=== PATIENT | male | born 1960 | race Caucasian/White ===

== ENCOUNTER 2016-10-04 10:29 | Day surgery (SDC) | payer OTHER ==
[~2016-10-04] VITALS: Ht 167.6 cm; Wt 56.7 kg
[2016-10-04] VITALS (7 sets, daily range): BP systolic 117–140; BP diastolic 72–79; PULSE 50–82; RESP 16; O2SAT 100
[~2016-10-04 10:29] MED LIST: 0.9% Sodium Chloride 1,000 ML IV SCH; OMEP20TA86 PO; Sodium Chloride LOK Flush 10 mL Syringe IV PRN; fentaNYL-PF 50 mCg/mL 2 mL Inj IVPUSH PRN
--- NOTE | 2016-10-04 14:28 | ENDO ---
[address] [address] ENDOSCOPY PROCEDURE PATIENT: NISA WINN : 1960 MR#: [id number] ADMIT: 10/04/2016 JOB ID: [id number] DATE OF SERVICE: 10/04/2016 PROCEDURE: Esophagogastroduodenoscopy with biopsy. Colonoscopy with hot snare polypectomy. PREPROCEDURE DIAGNOSIS(ES): Dysphagia. POSTPROCEDURE DIAGNOSIS(ES): 1. Distal esophageal stricture starting at 35 cm from the incisors. It is friable, hard, very concerning for malignancy, status post biopsy. Unable transverse this stricture through a regular upper endoscope or pediatric spaghetti scope. 2. An 8 mm transverse colon polyp, removed by hot snare polypectomy. 3. Small internal hemorrhoids. 4. Mild sigmoid diverticulosis. ANESTHESIA: Fentanyl 100 mcg, Versed 6 mg IV administered. COMPLICATIONS: None. BLOOD LOSS: Minimal. DESCRIPTION OF PROCEDURE: After risks and benefits explained to the patient, informed consent was obtained. After anesthesia administered, upper endoscope was inserted in the mouth and it could not transverse the stricture. After procedure was done, the scope withdrawn and procedure terminated. A colonoscope was inserted per rectum to cecum. Mucosa carefully examined. The prep of the patient was fair. The scope was withdrawn and procedure terminated. Upon inspection of the esophagus, there was a friable hard stricture, seen at the distal esophagus starting at 35 cm from incisors. Unable to pass through a regular upper endoscope or spaghetti pediatric scope. Several biopsies were taken in this region. The procedure was then aborted. Upon inspection of the anus, no masses, hemorrhoids, ulcers, fissures that were seen. Throughout the entire examination, there was an 8 mm transverse colon polyp removed by hot snare polypectomy. There was also mild sigmoid diverticulosis. Retroflexion revealed small internal hemorrhoids. No other polyps or masses were seen. IMPRESSION: 1. Esophageal stricture that is hard and friable, very concerning for malignancy at distal esophagus starting from 35 cm at least to the gastroesophageal junction. Unable to transverse through, status post biopsy. 2. An 8 mm transverse colon polyp removed by hot snare polypectomy. 3. Mild sigmoid diverticulosis. 4. Small internal hemorrhoids. RECOMMENDATION: Await pathology results. Will refer to [place] to see GI and Oncology. CT of chest, abdomen and pelvis with contrast.
--- NOTE | 2016-10-07 16:38 | PATH ---
SURGICAL PATHOLOGY Attending Physician:Chintan Lino MD CASE STATUS: Signed Out PATIENT NAME: NISA WINN PID: [id number] : 1960 DATE COLLECTED:10/04/2016 22:29 SPECIMEN: 1: Esophagus, Biopsy 2: Colon, Polyp CLINICAL HISTORY: 1). ESOPHAGEAL STRICTURE @ 35CM 2). TRANSVERSE POLYP X1 FINAL DIAGNOSIS: 1. Esophageal Stricture at 35 cm, Biopsy: - Poorly differentiated adenocarcinoma. Please see comment. - HER2 study pending; results will be reported as an addendum. 2. Transverse Colon, Polyp, Biopsy: Portions of tubular adenoma x3; negative for high-grade dysplasia. ICD10: C15.9 NOTE: Part 1: The immunohistochemistry studies support the diagnosis of adenocarcinoma and mitigate against a squamous origin. The findings are non-specific, but compatible with an upper gastrointestinal / pancreatobiliary origin. Please correlate these findings with imaging studies. This case was reviewed by my gastrointestinal pathologist colleague, Dr. Marlyn Truong, who concurs with the above interpretation. GROSS DESCRIPTION: The specimen is received in two formalin filled containers labeled with the patient's name. 1). The specimen is labeled "stricture esophagus at 35 CM" and consists of 2 portions of tissue which aggregate to 0.2 x 0.2 x 0.2 CM. The specimen is entirely submitted in cassette 1A. 2). The specimen is labeled "transverse colon polyp" and consists of 3 portions of tissue which aggregate to 0.3 x 0.3 x 0.3 CM to 0.5 x 0.5 x 0.5 CM. All fragments are entirely submitted in cassette 2A. 10/04/2016DC MICRO DESCRIPTION: 1.Immunohistochemical stains was performed, and the results are as follows. Control stains showed appropriate reactivity. Immunohistochemistry stainResult CDX-2Weak, variable staining AV6Afwo, variable staining [id number] E38Ubtlifk of strong staining CK5/6Absence of strong staining Her2 Pending, results will be reported in an addendum. This test was developed and its performance characteristics determined by [facility]. It has not been cleared or approved by the U. S. Food and Drug Administration. The FDA has determined that such clearance or approval is not necessary. This test is used for clinical purposes. It should not be regarded as investigational or for research. ICD-9 CODES: CPT CODES: 1: 69673, 97667, 37761, 06745, 08261, 92996 2: 17865 Electronically Signed Out Asuncion Eduardo MD [facility] [address], [place] [address] Technical component performed at [facility], [facility] [address], [place], [address]
== END 2016-10-04 23:59 | disposition home or self-care (01) ==
LOC: END 10:29
PROVIDERS: ATTEND Internal Medicine Gastroenterology
DX: Z12.11 Encounter for screening for malignant neoplasm of colon (principal); D12.3 Benign neoplasm of transverse colon; K57.30 Diverticulosis of large intestine without perforation or abscess without bleeding; K64.8 Other hemorrhoids; C15.5 Malignant neoplasm of lower third of esophagus; K22.2 Esophageal obstruction; K21.9 Gastro-esophageal reflux disease without esophagitis
CPT/HCPCS: 43239; 45385; 99153; G0500; J2250; J3010; J7030

== ENCOUNTER 2016-11-09 12:08 | Observation (INO) | payer OTHER ==
[~2016-11-09] VITALS: Ht 165.1 cm; Wt 45.8 kg
[2016-11-09] VITALS (11 sets, daily range): BP systolic 117–152; BP diastolic 70–91; PULSE 60–70; RESP 13–18; O2SAT 96–100
[~2016-11-09 12:08] MED LIST changes: -0.9% Sodium Chloride 1,000 ML IV SCH; +CeFAZolin Inj 2 GM in IV Premix 1 EACH IV ONE; -Sodium Chloride LOK Flush 10 mL Syringe IV PRN; +[UNRECOGNIZED DRUG - CODE] PO; -fentaNYL-PF 50 mCg/mL 2 mL Inj IVPUSH PRN
[2016-11-09] MEDS ORDERED: CeFAZolin 2 Gm/50 mL D5W Duplex Bag IV ONE (12:11)
[2016-11-09] MEDS: Lactated Ringer's 1,000 ML IV SCH ×3 (12:47→18:11)
[2016-11-09] MEDS ORDERED: Lactated Ringer's 500 ML IV PRN (14:16)
[2016-11-09] MEDS ORDERED: Lactated Ringer's 1,000 ML IV SCH (14:16)
--- NOTE | 2016-11-09 14:16 | PCM.HPANE ---
Patient Data Surgeon Admitting Provider: Attending Provider:Tainsha Martinez MD Primary Care Physician:Ephraim He MD Other Provider:Shannan Emery Anesthesia Reason for Visit Esophageal Cancer Ht/WT & BMI Height (Feet): 5 Height (Inches): 6 Weight (Kilograms): 45. Body Mass Index 15.00 Allergies Coded Allergies: No Known Drug Allergies (Verified Allergy, Unknown, 11/08/16) Past Anesthesia History Anesthesia History: Denies:: Abnormal Airway, Anesthesia Reactions, Difficult Intubation, Fam Anesthesia Reaction, Fam Malignant Hypertherm, Malignant Hyperthermia Diabetes History Hx Diabetes?: No MRSA MRSA: No Medications Reported Medications Lactose-Free Food (Ensure High Protein)237 Ml Mioely494 Ml PO DAILY 11/08/16 Discontinued Reported Medications Omeprazole 20 Mg Tablet.dr20 Mg PO DAILY 09/30/16 History History of ENT Problems?: Yes HEENT History: Positive for:: Dysphagia (Esophageal strictures) Denies:: Abnormal Airway Difficult Intubation Hearing Problem Sinus Problem TMJ Denture Type: None Teeth Condition: Within Normal Limits Missing Teeth Hx of Heart Problems?: No Cardiovascular History: Denies:: AICD Abdominal Aortic Aneurism Atrial Fibrillation Cardiac Surgery Chest Pain Congestive Heart Failure Coronary Artery Disease Edema Heart Murmur Hypertension Irregular Heartbeat Pacemaker Peripheral Vascular Rheumatic Fever Thrombophlebitis Valvular Heart Disease Hx of Respiratory Problem?: No Respiratory History: Denies:: Asthma COPD Chest Surgery Cough Dyspnea Emphysema Hemoptysis Oxygen Administration Pneumonia Pulmonary Embolism Tuberculosis Use of C-PAP Machine Use of Inhalers / NEBS Hx Neurologic Problems?: No Neurological History: Denies:: Alzheimer's Disease CVA Dementia Dizziness Headaches Parkinson's Disease Seizures TIA Hx of GI Problems?: Yes Gastrointestinal History: Positive for:: Gastroesphageal Reflux Denies:: Cirrhosis Diverticulitis Gall Bladder Disease Gastrointestinal Bleeding Heartburn Hepatitis Hiatal Hernia Liver Disease Rectal Bleeding Other GI Pertinent History: Esophageal CA Hx of Problems?: No HX of Peritoneal Dialysis: No Male Hx: Denies:: Prostate Problems Scrotal Mass Testicular Surgery Skin History: Denies:: History Skin Disorders? Pressure Ulcers Hx Musculoskeletal Problems?: No Musculoskeletal History: Denies:: Back Injury Degenerative Joint Joint Replacement Musculoskeletal Trauma Osteoarthritis Rheumatoid Arthritis Hx of Psycho/Social Problems?: No Psycho Social History: Denies:: Anxiety Hx Depression Hx Surgeries?: Yes (LEFT EYE) Hx Any Other Health Problems?: No Other History: Positive for:: Cancer (Esophageal with mets) Denies:: Hospitalization Thyroid Disease History Blood Transfusions: Positive for:: Accept Blood Products? Denies:: Blood Transfusions Hx Diabetes: No Hx Alcohol Use: NoHx Substance Use: Yes (occassionally) Smoking Status: Never Smoker Stop/Bang S-Snoring: Do You Snore Loudly: No T-Tired: feel tired, fatigued: No O-Obsered: Observed not breath: No P-Blood Pressure: treated: No B- Body Mass Index > 35 kg/m2: No A- Age over 50: Yes N- Neck Large Circumference: No G- Gender Male: No LAURA Total Score: 1 Risk Assessment Category Category 1A: Patient has history of documented sleep apnea, and HAS NOT received any narcotic, sedative or anesthesia administration during this stay. Category 1B: Patient has history of documented sleep apnea, and HAS received any narcotic , sedative or anesthesia administration during this stay Category 2: Patient has SUSPECTED Obstructive Sleep Apnea, and HAS received any narcotic , sedative or anesthesia administration during this stay. Category 3: Patient has SUSPECTED Obstructive Sleep Apnea and HAS NOT received narcotic, sedative or anesthesia administration during this stay. Category 4: Outpatient in Procedural Areas with known sleep apnea or who screen positive for High Risk via the STOP/BANG questionnaire. Exam Exam General Appearance: Alert, Oriented X3, Cooperative, No Acute Distress HEENT/AIRWAY: MP 2 Lungs: Clear to Auscultation Heart: Exam Unremarkable Plan Impression Patient chart reviewed, patient interviewed and anesthestic plan with risks, benefits, and alternatives discussed, and informed consent obtained. ASA Physical Status: ASA3 Severe Disease Anesthetic Plan: GA Bene/Risks/Altern/Consents: Yes HP Complete Prior to Induction: Yes Tom Gautam MD Nov 09, 2016 10:51
[2016-11-09] MEDS ORDERED: Dexamethasone 4 mg/mL Inj IVPUSH PRN (14:20)
[2016-11-09] MEDS ORDERED: fentaNYL-PF 50 mCg/mL 2 mL Inj IVPUSH PRN (14:20)
[2016-11-09] MEDS ORDERED: HYDROmorphone 1 mg/mL Inj IVPUSH PRN ×2 (14:20→16:25)
[2016-11-09] MEDS ORDERED: Phenylephrine 10,000 mCg/mL Inj IVPUSH PRN (14:20)
[2016-11-09] MEDS ORDERED: EPHEDrine Sulfate 50 mg/mL Inj IVPUSH PRN (14:20)
[2016-11-09] MEDS ORDERED: MetoCLOpramide 5 mg/mL 2 mL Inj IVPUSH PRN ×2 (14:20→16:25)
[2016-11-09] MEDS ORDERED: Ondansetron 2 mg/mL 2 mL Inj IVPUSH PRN ×2 (14:20→16:25)
[2016-11-09] MEDS ORDERED: Bupivacaine-MPF 0.5% 30 mL Inj INJ ONE (14:35)
[2016-11-09] MEDS ORDERED: HepLOK Flush 100 unit/mL 5 mL Inj IVFLUSH ONE (14:44)
[2016-11-09] MEDS ORDERED: D5 0.45% NaCl + KCl 20 mEq/L 1,000 ML IV SCH (16:25)
[2016-11-09] MEDS ORDERED: oxyCODONE 1 mg/mL 5 mL Liquid PO PRN (16:25)
--- NOTE | 2016-11-09 16:28 | PCM.ANEP1 ---
Post Anesthesia PACU Phase 1 Assessment Vital Signs Vital Signs Date Time Temp Pulse Resp B/P Pulse Ox O2 Delivery O2 Flow Rate FiO2 11/09/16 12:33 36.6 65 16 123/73 100 Room Air Anesthetic Administered: GA Level of Alertness: Awake, talking CAMP's with Equal Strength: Yes Pain: No Nausea or Vomiting: No CV Function & Hydration Stable: Yes Airway Device: Oxygen Delivery: Room Air Lungs: Clear to Auscultation Dermatome Level: Full Sensation PACU Phase 2 Assessment Complications: No Patient Instructions Provided: N/A Tom Gautam MD Nov 09, 2016 16:28
--- NOTE | 2016-11-09 16:44 | PCM.SURGPO ---
Immediate Operative Note Date of Surgery: Nov 09, 2016 Pre Operative Diagnosis Dysphagia and Esophageal Adenocarcinoma Post Operative Diagnosis Dysphagia and Esophageal Adenocarcinoma Procedure 1. Left subclavian port placement 2. Laparoscopic gastrostomy tube placement Surgeon and Specialist Icu Surgeon: Tanisha Martinez MD Assistants: Ramirez Burton MD and Miguelina Atwood DO Findings 1. Left subclavian port placement 2. Normal appearing stomach, laparoscopic gastrostomy tube placed with fluoroscopic confirmation. Complications There were no periprocedural complications identified. Surgical Specimen Removed: Not applicable Specimen sent to Pathology: Not applicable Anesthetic Administered: GA Grafts, Implants: Implants-See Implant Record Output, Estimated Blood Loss: 25 Blood Admin during surgery: Ramirez Michaels MD Nov 09, 2016 16:44
--- NOTE | 2016-11-09 17:14 | OP ---
[address] [address] OPERATIVE REPORT PATIENT: NISA WINN : 1960 MR#: [id number] ADMIT: 11/09/2016 JOB ID: [id number] DATE OF SURGERY: 11/09/2016 PREOPERATIVE DIAGNOSIS(ES): Metastatic esophageal adenocarcinoma. POSTOPERATIVE DIAGNOSIS(ES): Metastatic esophageal adenocarcinoma. PROCEDURE PERFORMED: 1. Tunneled left subclavian central venous catheter with subcutaneous port placement with intraoperative fluoroscopy. 2. Laparoscopic gastrostomy tube placement with intraoperative fluoroscopy. SURGEON: Tanisha Martinez MD PATCH SETTER: Ramirez Burton MD and Miguelina Atwood DO COMPLICATIONS: None. CONDITION OF THE PATIENT: Stable. INDICATIONS: The patient is a 56-year-old gentleman who presented to our regulatory agency director, Dr. Lino, with solid food dysphagia for two months on September 14, 2016. Dr. Lino performed EGD on October 04, 2016 and was diagnosed with a malignant distal esophageal stricture at 35 cm that he was unable to traverse. Pathology results were consistent with poorly differentiated adenocarcinoma. He was seen by Dr. Alvarado for palliative radiation. The patient lost about 40 pounds weight during this time. He was sent to me for consultation for gastrostomy tube placement. Given he needs chemotherapy, and also that endoscopy could not reach the stomach, I recommended laparoscopic gastrostomy along with tunnelled central venous catheter with port placement. After discussing the risks, benefits, and alternatives, he is here today to have that done. PROCEDURE DETAILS: He was placed in a supine position and underwent smooth induction of general anesthesia. Chest, neck, and abdomen were prepped and draped in the usual sterile fashion. A surgical time-out was undertaken using safety checklist and all were in agreement. We placed the patient in steep Trendelenburg position and entered the left subclavian vein using Seldinger technique and measured the required length of catheter using fluoroscopy and made a pocket over the left pectoralis for the port. After that we placed two PDS sutures to anchor the port to the fascia over the pectoralis and then attached the catheter to it and cut it to the required length. After that we advanced the introducer dilator over the wire, and removed the wire and the dilator, and advanced the catheter over the introducer sheath. After that we removed the tear-away sheath and placed the port within the pocket, and aspirated and flushed it, and confirmed that it is working well. Final fluoroscopy showed the catheter and the port to be in good position, with no kinks, and the catheter was locked with 100 units/mL of heparin. The skin was reapproximated with 4-0 Monocryl and then we directed our attention to the abdomen. I entered the abdomen using a combination of open Oc technique and using Optiview trocar, using a 5 mm port in the infraumbilical location. After obtaining pneumoperitoneum, we chose a site in the left upper quadrant for the gastrostomy and made an incision big enough for a 5 mm port. After placing the 5 mm port through, we grabbed the suitable location in the greater curvature of the stomach anteriorly on the antrum and desufflated the abdomen and brought the stomach to the skin level to be able to work. I placed stay sutures through the stomach and then we used the 3-0 Vicryl as four Abhi sutures anchoring the stomach to the rectus fascia. After that, we placed a pursestring in the middle and made a gastrotomy and attempted to advance the tube. This was not very straightforward and it was unclear if we were able to get into the gastric lumen or submucosal, prompting us to go back to a needle and placed a guidewire through the needle and used fluoroscopy to confirm intragastric placement. After injecting contrast and making sure that we were in the gastric lumen, we advanced the wire and then used serial dilators to dilate up to a 16-Mozambican dilator, and then advanced an 18-Mozambican G-tube over the wire. We again checked after injecting the G-tube to make sure that we were within the gastric lumen and insufflated the balloon with water and pulled back on the tube and then again checked intragastric position by injecting contrast through the G-tube. At this point we made sure we had no extravasation of liquid when injecting the G-tube into the peritoneal cavity by watching laparoscopically. We then removed the umbilical port trocar and closed the fascia with 0-Vicryl suture. The skin was reapproximated with 4-0 Monocryl. Steri-Strips and a sterile dressing were applied. Patient was recovered from anesthesia and was taken to the recovery room in stable condition. LILLI
--- NOTE | 2016-11-09 17:21 | DRSVH ---
PROCEDURE: X-RAY CHEST ONE VIEW, PORTABLE ([id number]) INDICATIONS: status post Left Subclavian Port placment TECHNIQUE: One view of the chest was acquired. COMPARISON: CT from 10/18/2016. FINDINGS: Surgical changes and devices: Portacatheter tip in the right atrium. Lungs and pleura: No pleural effusions or pneumothorax. Lungs are clear. The patient's known pulmo nary nodules are below the resolution of this study. Mediastinum: Mediastinal contours appear normal. Heart size is normal. Bones and chest wall: No suspicious bony lesions. Overlying soft tissues appear unremarkable. Free peritoneal gas. Oral contrast. IMPRESSION: Sided portacatheter tip in the right atrium. Free intra-abdominal gas consistent with recent gastrost michelle tube placement. Findings discussed via telephone with Dr. Martinez at 5:20 PM on 11/09/2016. Dictated by: Jose Reeves M.D. on 11/09/2016 at 17:16 Approved by: Jose Reeves M.D. on 11/09/2016 at 17:20
--- NOTE | 2016-11-09 18:00 | NUR ---
Post op Pt arrived on gurney and able to slide self over to bed. Denies any pain. Power port site on left chest is CDI. G-tube site is CDI. VSS, A&O x 3, CAMP, SCD's in place and connected. 99% on RA. Pt's daughter wanted to talk outside room and states that pt is a meth user and used this AM. Sharps container taken out of room, side placed at door for visitors to check in and belongings locked up. Will page to notify. Pt oriented to room and call light within reach. Addendum: 11/09/16 at 1927 by ANGEL CELIS RN called back and notified of drug use. He also recommended to have dietary come first thing in the morning to evaluate pt and start feedings, so pt can discharge tomorrow.
[2016-11-09] MEDS ORDERED: Dexamethasone 4 mg/mL Inj ONE (18:16)
[2016-11-09] MEDS ORDERED: Ondansetron 2 mg/mL 2 mL Inj ONE (18:16)
[2016-11-09] MEDS ORDERED: fentaNYL-PF 50 mCg/mL 2 mL Inj ONE (18:16)
[2016-11-09] MEDS ORDERED: Propofol 10,000 mCg/mL 20 mL Inj ONE (18:16)
[2016-11-09] MEDS: Acetaminophen 32.5 mg/mL 20 mL Liquid PO SCH ×2 (18:16→22:25)
[2016-11-09] MEDS ORDERED: Succinylcholine Chloride 20 mg/mL 5 mL Inj ONE (18:16)
[2016-11-09] MEDS ORDERED: MetoCLOpramide 5 mg/mL 2 mL Inj ONE (18:16)
[2016-11-09] MEDS ORDERED: Rocuronium 10 mg/mL 5 mL Inj ONE (18:16)
[2016-11-09] MEDS: Heparin 5,000 Unit/mL Inj SUBQ SCH (18:17)
[2016-11-10 00:11] VITALS: BP 127/69; PULSE 68; RESP 16; O2SAT 97
[2016-11-10] MEDS: Heparin 5,000 Unit/mL Inj SUBQ SCH ×2 (00:43→07:46)
--- NOTE | 2016-11-10 01:51 | NUR ---
Cancer Care Appointment Patient A&OX3 and pleasant this evening. Denies any pain, CP, or SOB. States that he has received a telephone call from the cancer [facility] that he has a radiation appointment scheduled for in the morning, 11/10/16. Patient is concerned about whether or not MD at the hospital is aware of this, or if he should attend. Will share this with day shift nurse in hopes that this information be passed on. Will continue to monitor and continue Q1 hour checks.
[2016-11-10 04:42] VITALS: BP 107/63; PULSE 68; RESP 16; O2SAT 99
[2016-11-10] MEDS: Acetaminophen 32.5 mg/mL 20 mL Liquid PO SCH (04:50)
--- NOTE | 2016-11-10 07:03 | PCM.DISURG ---
Surgical Discharge Instruction Date of Service Nov 10, 2016 Dates of Hospitalization Date of Hospital Admission Nov 09, 2016 at 18:15 Providers Admitting Physician: Tanisha Martinez MD Primary Care Physician: Ephraim He MD Attending Physician: Tanisha Martinez MD Discharge Diagnosis Post Operative diagnosis Dysphagia and Esophageal Adenocarcinoma Diet Discharge Diet: Other (Tube feeding per home nutrition care instructions. Clear liquid diet by mouth.) Activity Discharge Activity-General: No lifting >15 pounds for 2 weeks Dressing and Incisional Care Dressing Care: Keep dressing clean, dry & intact (around G tube. Keep G tube coming straight out and taped to skin to prevent too much motion.), Allow Steri Stripes to fall off (from port site.) Hygiene: May shower after (48 hours.), DO NOT soak incision under water, NO bathtub, hot tub or whirlpool Follow Up Plan Follow Up Plan as needed if questions or concerns about wound healing or G tube issues. Follow-up Provider (F9): Tanisha Martinez MD Follow-up appointment: As needed Call your provider for: Increasing abdominal pain, Nausea, Vomiting, Discharge @ incision, pus discharge Ramirez Burton MD Nov 10, 2016 07:03
[2016-11-10] MEDS ORDERED: ACET650S24 PO (07:05)
--- NOTE | 2016-11-10 07:13 | PCM.PNSURG ---
Subjective Date of Service: Nov 10, 2016 Date of Service: Nov 10, 2016 Visit Information: Reason for Visit Esophageal Cancer Surgery/Surgery Date GASTROSTOMY TUBE/ PORT A CATH 11/09/16 Post-Op Day # Date of Admission: Nov 09, 2016 at 18:15 Hospital Day # Subjective: Sergio reports minimal pain at operative sites. He slept well and felt comfortable with tylenol for pain control. Denies nausea, vomiting. Looking forward to going home today. Objective Vital Sign- Last 8 Hours Date Time Temp Pulse Resp B/P Pulse Ox O2 Delivery O2 Flow Rate FiO2 11/10/16 04:42 36.6 68 16 107/63 99 Room Air 11/10/16 00:11 36.7 68 16 127/69 97 Room Air Intake and Output- Last 8 Hour 11/10/16 Cumulative From/Thru 07:00 11/08/16 10:13 - 11/10/16 05:03 Intake Total 930 ml 2780 ml Output Total 300 ml 325 ml Balance 630 ml 2455 ml Intake Oral 400 ml 400 ml IV Total 530 ml 2380 ml Output Urine Total 300 ml 300 ml Estimated Blood Loss 25 ml # Bowel Movements 0 0 General: Alert, Oriented X3, Cooperative, No Acute Distress Neck: Other (Left subclavian port site dressing c/d/i. Minimal tenderness to palpation. ) Lungs: Clear to Auscultation, Normal Air Movement Heart: Regular Rate/Rhythm Abdomen: Benign, Non-tender, Other (G tube site is bolstered and tube taped to skin. No leaking appreciated. Surgical site is c/d/i without erythema. Scaphoid abdomen.) Assessment & Plan Impression 56 yo M with esophageal adenocarcinoma and dysphagia s/p left subclavian port placement and laparoscopic gastrostomy tube placement. Recovering well and ready to initiate tube feeding this morning. Problems: Plan FEN/GI: Start jevity 1.5 at 30cc/hr. Water flushes 40cc q4hrs. Clear liquid diet as tolerated. PAIN: Liquid tylenol prn for pain control. Rx in chart for discharge. CANCER: Radiation therapy at 10am. SW: Home tube feeding arranged, patient will call on discharge so they can meet him at home to review home care, tube feeding set up and instructions. DISPO: Okay for discharge home after radiation treatment if tolerating tube feeding rate without abdominal pain, nausea, vomiting or G tube leaking. Ramirez Burton MD Nov 10, 2016 07:09
[2016-11-10] MEDS ORDERED: OXYC5SOL11 PO (07:14)
--- NOTE | 2016-11-10 07:28 | NUR ---
NUTRITION ASSESSMENT: ASSESS: 56 YO patient recently diagnosed with poorly differentiated adenocarcinoma of the lower esophagus. EGD performed 10/04/16 showed a distal esophageal stricture starting at 35 cm from the incisors, friable, hard. Stricture was unable to be traversed, despite utilizing a pediatric scope. The patient reports he has had increased difficulty swallowing solid food, progressing to the point where any solid was regurgitated, worse as the day progresses. Despite no loss of appetite, he reports he has lost 40 pounds = 18.18 kg = 28.78% x 3 months = severe malnutrition. He was given a prescription for Reglan, along with nutritional supplements; however, he is unable to keep anything down. He has been referred for early initiation of palliative radiation to the esophagus such that the patient may be able to tolerate PO nutrition; radiation oncologist will then consider chemotherapy. PEG tube was placed yesterday for nutrition intervention; fortunately home healthcare was authorized by insurance after the fact. The patient was admitted followoing the procedure; orders received this morning to initiate enteral feeding prior to discharge. POC: [facility] will meet the patient following his radiation appointment this morning to provide PEG tube education and feeding instructions. 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 LABS: No labs ordered. NUTRITION FOCUSED PHYSICAL ASSESSMENT: GI symptoms / stool: No problems reported with lower GI tract. Skin Integrity: No issues reported. ANTHROPOMETRICS: Current Wt: 45.8 kg BMI: 16.0 kg/m2. IBW: 63.8 kg (71% IBW) ESTIMATED NEEDS (CANCER [place]HEXIA): Calories: 1575 - 1800 kcal (35 - 40 kca/ kg BW) Protein 68 - 90 g protein (1.5 - 2.0 g / kg BW) Fluid: Approx. 1575 mL (35 mL/ kg BW) NUTRITION DIAGNOSIS: 1) Severe malnutrition related to rapidly progressing esophageal cancer with mets, as evidenced by 28.78% BW loss x 3 months. INTERVENTION 1) Enteral feeding recommendation follows; orders submitted for initiation of therapy. Jevity 1.5 will initiate at 30 mL/hr x 8 hr. Once refeeding risk resolved, recommend advance 5 ml every 4 hr. to goal rate 48 mL/hr. Once the patient has been discharged, and refeeding risk resolved (approx. 3 days), recommend nocturnal feeding x 12 hr. Once pt. clearly tolerating enteral feeding, recommend slowly increasing nocturnal feeding to 95 mL/hr x 12 hours nocturnally. 2) In the event pt. unable to qualify for pump, recommend bolus feedings throughout the day calculated to meet patient's nutrient needs. 3) Our outpatient RD's will follow [facility] to provide support and encouragement as his treatment progresses. MONITOR/EVALUATE: NPO status, enteral feeding initiation / advance / tolerance, POC, labs, weight, nutritional status. Follow up per high nutrition risk guidelines.
--- NOTE | 2016-11-10 10:28 | NUR ---
PEG PEG feeding started at 30ml with flush 40ml q4 with IV fluids infusing started at 0750. Within 30 minutes pt was complaining of pain and requesting feedings turned town. Turned to 10ml/hr and IV pain medications given. Pt tolerating well until flushed 16ml water prior to discharge, which caused increasing pain.
--- NOTE | 2016-11-10 10:29 | NUR ---
Discharge Pt discharged at 0947 in w/c with [employer] taking over to radiation. Pt having increasing PEG pain after flush. IV medications given 1 hour prior. Pt educated on PEG tube infusions and care. Pt understands to call home infusion services once home and has the phone number. ZOË FUCHS, A&O x 3. Pt has discharge instructions, care notes and rx. Rx also faxed to [facility]. Pt has all belongings and all questions answered.
--- NOTE | 2016-11-10 12:34 | PCM.DC.SUR ---
Discharge Summary Date of Service: Nov 10, 2016 Date of Hospital Admission: Nov 09, 2016 at 18:15 Date of Operation(s): Nov 09, 2016 Date of Discharge: Nov 10, 2016 Diagnosis at Time of Discharge Metastatic esophageal adenocarcinoma Problems: (1) Dysphagia Qualifiers: Dysphagia type: esophageal phase Qualified Code: R13.14 - Dysphagia, pharyngoesophageal phase Status: Acute ICD Code: R13.10 Operation 1. Tunneled left subclavian central venous catheter with subcutaneous port placement with intraoperative fluoroscopy. 2. Laparoscopic gastrostomy tube placement with intraoperative fluoroscopy Brief History and Physical: The patient is a 56-year-old gentleman who presented to our neck skewer, Dr. Lino, with solid food dysphagia for two months on September 14, 2016. 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 Pathology results were consistent with poorly differentiated adenocarcinoma. He was seen by Dr. Alvarado for palliative radiation. The patient lost about 40 pounds weight during this time. He was sent by general surgery for consultation for gastrostomy tube placement. Given he needs chemotherapy, and also that endoscopy could not reach the stomach, laparoscopic gastrostomy along with tunnelled central venous catheter with port placement was recommended. After discussing the risks, benefits, and alternatives he presented to the hospital for the above mentioned procedures to be performed. Vital Sign- Last 8 Hours Date Time Temp Pulse Resp B/P Pulse Ox O2 Delivery O2 Flow Rate FiO2 11/10/16 04:42 36.6 68 16 107/63 99 Room Air 11/10/16 00:11 36.7 68 16 127/69 97 Room Air Intake and Output- Last 8 Hour 11/10/16 Cumulative From/Thru 07:00 11/08/16 10:13 - 11/10/16 05:03 Intake Total 930 ml 2780 ml Output Total 300 ml 325 ml Balance 630 ml 2455 ml Intake Oral 400 ml 400 ml IV Total 530 ml 2380 ml Output Urine Total 300 ml 300 ml Estimated Blood Loss 25 ml # Bowel Movements 0 0 General: Alert, Oriented X3, Cooperative, No Acute Distress Neck: Other (Left subclavian port site dressing c/d/i. Minimal tenderness to palpation. ) Lungs: Clear to Auscultation, Normal Air Movement Heart: Regular Rate/Rhythm Abdomen: Benign, Non-tender, Other (G tube site is bolstered and tube taped to skin. No leaking appreciated. Surgical site is c/d/i without erythema. Scaphoid abdomen.) Consultants: none Hospital Course: The patient was admitted and taken to the operating room for a laparoscopic placement of a gastrostomy tube and placement of a subcutaneous port. Please see the operative report for details of the procedure. The patient tolerated the procedure and was transferred to his hospital room where he remained for the balance of his hospital stay. On postoperative day number 1, he was found to have good pain control and access to the port and feeding tube was performed without abdominal pain, nausea, vomiting or G tube leaking. He was then discharged to his home in good condition with plans to begin radiation therapy and tube feedings today. Pathology: None Disposition: good condition Follow-up Plan: Tube feeding per home nutrition care instructions. Clear liquid diet by mouth. Follow up as needed if questions or concerns about wound healing or G tube issues. Acetaminophen (Acetaminophen Liquid) 650 Mg/20 Ml Liquid 650 MG PO Q6H PRN PRN For Pain Lactose-Free Food (Ensure High Protein) 237 Ml Liquid 237 ML PO DAILY (Reported ) copies to: Ephraim He MD, Samuel L PA-C Nov 10, 2016 12:33
== END 2016-11-10 09:54 | disposition home or self-care (01) ==
LOC: SAS 12:08 → OSC 18:15
PROVIDERS: ADMIT Student in an Organized Health Care Education/Training Program; ATTEND Student in an Organized Health Care Education/Training Program
DX: C15.9 Malignant neoplasm of esophagus, unspecified (principal); R13.10 Dysphagia, unspecified; R63.4 Abnormal weight loss; F12.90 Cannabis use, unspecified, uncomplicated
CPT/HCPCS: 36561; 43653; 71010; 76000; 76001; 96374; C1788; G0378; G0379; J0330; J0690; J1100; J1170; J1642; J1644; J1885; J2405; J2704; J2765; J3010; J7120

== ENCOUNTER 2016-11-10 16:09 | Inpatient (IN) | payer OTHER ==
[~2016-11-10] VITALS: Ht 167.6 cm; Wt 52.0 kg
[~2016-11-10 16:09] MED LIST changes: +ACET650S24 PO; -CeFAZolin Inj 2 GM in IV Premix 1 EACH IV ONE; -OMEP20TA86 PO; +OXYC5SOL11 PO
[2016-11-10 16:15] VITALS: BP 168/89; PULSE 74; RESP 18; O2SAT 100
--- NOTE | 2016-11-10 16:24 | ED.REPORT ---
HPI-General Illness Date of Service Nov 10, 2016 ED Provider: Roshan Starkey MD Patient is a 56 year old male with a history of esophageal cancer with mets to the liver and lungs who presents to the ED complaining of left upper quadrant abdominal pain onset today. Associated symptoms include nausea and pain that radiates throughout the rest of his abdomen. The patient reports that he has not had any bowel movements but has been able to pass gas. The patient describes the pain as sharp and burning and rates it as an 8/10. Patient had a gastrostomy tube paced yesterday and was discharged in stable condition today. The patient states that the pain started after receiving food through the tube and he has not noticed anything that improves his pain. He denies rectal bleeding, chest pain, vision changes, headache, shortness of breath, fever or chills, or any other related complaints at this time. Nursing Notes Stated Complaint: POST OP PAIN- SOB, NAUSEA, ABD. PAIN Chief Complaint: Male Abdominal Pain Nursing Notes Reviewed: Yes Allergies: Coded Allergies: No Known Drug Allergies (Verified Allergy, Unknown, 11/10/16) Scheduled Lactose-Free Food (Ensure High Protein) 237 Ml Liquid 237 ML PO DAILY Scheduled PRN Acetaminophen (Acetaminophen Liquid) 650 Mg/20 Ml Liquid 650 MG PO Q6H PRN PRN For Pain General Time Seen by MD: 16:24 Chief Complaint Abdominal pain Hx Obtained From: Patient Arrived By: Walk-in Sudden in Onset?: Yes Onset Occurred: 1 - 4 hours ago Symptom Duration: Since onset Location: : Abdomen Quality: Aching, Burning, Painful Severity: Current: Pain level 8 out of 10 Recent Healthcare: Recent doctor visit, Recent hospitalization Past Medical History Past Medical History metastatic esophageal cancer Past Surgical History gastrostomy tube placement Smoking History Never Smoker Ambulatory Status Independent Review of Systems Full Review of Systems Constitutional: Denies: Chills, Fever Eyes: Denies: Blurred bilateral, Diplopia Ears / Nose / Throat: Reports: Throat pain Respiratory: Denies: Non-productive cough, Shortness of breath Cardiovascular: Denies: Chest pain GI: Reports: Abdominal pain, Nausea, Denies: Bloody/tarry stool, Hematochezia, Vomiting Male: Denies Dysuria Musculoskeletal: Denies: Back pain Hematologic: Denies Bruising Endocrine: Denies: Polyuria Skin: Denies Rash Allergy / Immune: Denies: Itching Neurologic: Denies: Headache, Vision change Psychiatric: Denies: Change mental status Complete sys rev & neg: except as marked. Physical Exam Nursing note and vitals reviewed. Constitutional: Thin, somewhat ill-appearing male lying flat in bed. Not diaphoretic. Head: Normocephalic and atraumatic. Mouth/Throat: Oropharynx is clear and moist. No oropharyngeal exudate. Eyes:Left eye opacified, stable from previous per patient. Right pupil is reactive to light and accommodation. Neck: Supple, no tracheal deviation. Cardiovascular: Normal rate, regular rhythm. Equal and intact distal pulses throughout. Pulmonary/Chest: Effort normal and breath sounds normal. No respiratory distress. Abdominal: Soft. No distension. Diffuse tenderness to palpation throughout with some voluntary guarding. Feeding tube appears to be in place, clean and dry without surrounding erythema. Musculoskeletal: Range of motion grossly intact, moving all extremities. No edema or tenderness appreciated. Neurological: AOx3. Grossly nonfocal exam. Strength and sensation intact and equal to bilateral upper and lower extremities. Skin: Warm and dry, no rashes or pallor appreciated. Psychiatric: Appropriate mood and affect. Behavior appears normal. Vital Signs Vital Signs Date Time Temp Pulse Resp B/P Pulse Ox O2 Delivery O2 Flow Rate FiO2 11/10/16 20:04 84 15 145/74 100 Room Air 11/10/16 16:15 36.6 74 18 168/89 100 Room Air Initial VS: Reviewed Interpretation & Diagnostics Lab Results Interpretation Result Diagram: 11/10/16 1650 11/10/16 1650 Test 11/10/16 16:50 11/10/16 17:11 White Blood Count 4.8th/mm3 (3.8-10.1) Red Blood Count 4.65mil/mm3 (4.40-5.80) Hemoglobin 13.2g/dL (13.8-17.2) Hematocrit 39.9% (41.0-50.0) Mean Corpuscular Volume 85.8fL (81-100) Mean Corpuscular Hemoglobin 28.4pg (27.0-35.0) Mean Corpuscular Hemoglobin Concent 33.1% (32.0-37.0) Red Cell Distribution Width 14.3% (12.3-15.4) Platelet Count 371bil/L (150-400) Neutrophils (%) (Auto) 82.1% (40-74) Lymphocytes (%) (Auto) 10.0% (14-46) Monocytes (%) (Auto) 7.7% (4-12) Eosinophils (%) (Auto) 0% (0-5) Basophils (%) (Auto) 0.2% (0-3) Sodium Level 132mEq/L (134-144) Potassium Level 4.4mEq/L (3.5-5.2) Chloride Level 92mEq/L (97-108) Carbon Dioxide Level 25mmol/L (18-29) Blood Urea Nitrogen 32mg/dL (6-24) Creatinine 0.93mg/dL (0.76-1.27) Estimat Glomerular Filtration Rate 89mL/min (>59) Glucose Level 190mg/dL (60-99) Calcium Level 9.1mg/dL (8.5-10.1) Magnesium Level 1.8mg/dL (1.6-2.6) Total Bilirubin 0.7mg/dL (0.0-1.2) Aspartate Amino Transf (AST/SGOT) 28U/L (0-50) Alanine Aminotransferase (ALT/SGPT) 36U/L (0-44) Alkaline Phosphatase 117U/L (25-150) Troponin T < 0.010ug/L (0.0-0.011) Total Protein 6.6g/dL (6.4-8.4) Albumin 3.6g/dL (3.4-5.0) Lipase 18U/L (13-60) Lactic Acid Level 2.2mmol/L (0.4-2.0) ECG Interpretation ECG Interpretation: left ventricular hypertrophy no acute ischemic changes Time: 16:40 Interpreted by: ED physician Normal ECG Interpretation: Normal rate (80), Normal sinus rhythm X-Ray Chest Interpretation Chest Xray Interpretation: IMPRESSION: No acute pulmonary process. Decreased free intra-abdominal air compared to prior exam. It is noted gastrostomy tube was placed on 11/09/16. The above findings were discussed with Dr. Josep Starkey on 11/10/16 at 6 PM. Dictated by: Sharonda Hummel M.D. on 11/10/2016 at 18:13 Approved by: Sharonda Hummel M.D. on 11/10/2016 at 18:16 Interpretation / Wet Read by: Interpret - Radiologist CT Abd / Pelvis Interpretation IMPRESSION: 1. Prominent free air and free fluid within the abdomen and pelvis. It is noted that a G-tube is present. As described above, the balloon of the G-tube appears to be indenting the anterior gastric wall. However, images do not clearly identify the G-tube within the gastric lumen. It is noted that prior examinations do demonstrate injected contrast from the G-tube into the stomach, as well as decreased air on chest x-ray dated 11/10/16 compared to 11/09/16. Appearance they may be secondary to overlap of free air or possibly retraction. Interval fluid and stranding of the abdominal and pelvic mesenteric fat possibly related to developing peritonitis or postsurgical inflammation. Recommend correlation to laboratory values. Definitive evaluation of G-tube placement may obtained with contrast injection. 2. Pulmonary nodules, hepatic masses, as well as mesenteric adenopathy consistent with metastatic disease is unchanged. The latter discuss with Dr. Josep Starkey on 11/10/16 at 8 PM. Dictated by: Sharonda Hummel M.D. on 11/10/2016 at 19:47 Approved by: Sharonda Hummel M.D. on 11/10/2016 at 20:19 Interpretation / Wet Read by: Interpret - Radiologist, Discussed w radiologist Re-Eval/Medical Decision Med Decision/Clinical Course In summary, 56-year-old male presenting to the ED for evaluation of severe abdominal pain that started earlier today after receiving feeds in his G-tube. Differential diagnosis includes tube displacement, false tract, peritonitis, small bowel obstruction, postoperative pain. Upon arrival to the ED, patient received pain medication and Zofran; hemodynamically stable. Laboratory studies notable for a sodium of 132, lactic acid of 2.2, lipase within normal limits, negative troponin, CBC grossly unremarkable. EKG demonstrates sinus rhythm with no acute ischemic changes. Chest x-ray does show some free air, however it is decreased from previous and can be seen routinely in the course of postoperative care. I discussed the patient with Dr. Martinez as per below. CT scan demonstrates prominent free air or free fluid within the abdomen and pelvis, however the G-tube could not be clearly identified within the gastric lumen, as well as possible findings consistent with peritonitis or postsurgical inflammation; other incidental findings as per above, unchanged from previous. An x-ray to confirm G-tube placement was ordered and showed that the G-tube was not in place with contrast extravasation into the abdomen. After discussion with the surgery service, decision was made to take the patient emergently to the operating room. Zosyn was ordered and initiated here prior to the procedure. The above was discussed with the patient, and he was agreeable to the plan as stated, no further questions. Time of Eval: 20:46 Re-Evaluation/Progress Note: Discussed results and plan for admit. Patient understands and agrees to plan. All questions were addressed. Consultation #1: Referral / Consult Name: Tanisha Martinez MD Consulted With: Surgeon Call Returned at: 19:00 Note: Consult with Dr. Martinez, who recommends CT then determining treatment plan. Consultation #2: Referral / Consult Name: Tanisha Martinez MD Consulted With: Surgeon Call Returned at: 20:46 Vp Patient: Will see patient, Agrees with eval, Agrees with plan, Accepts admit Counseled Regarding: Diagnosis, Lab results, Need for admission Discharge & Departure Primary Impression: Peritonitis Additional Impression: Complication of feeding tube Disposition: ADMITTED TO HOSPITAL Discharge Condition All VS Reviewed: Yes Condition: Stable Referrals: Ephraim He MD (PCP) Eliane Attestation Portions of this note were transcribed by Ceci Cummings. I, Dr. Starkey personally performed the history, physical exam and medical decision-making; I reviewed and confirmed the accuracy of the information in the transcribed note. Signed by: Eliane Bergeron, 11/10/16 copies to: Ephraim He MD, William B MD Nov 10, 2016 16:24 Anna Cummings Nov 10, 2016 17:00
[2016-11-10 17:01] LABS: BASOPHILS % (AUTO) 0.2 % (0-3); EOSINOPHILS % (AUTO) 0 % (0-5); MONOCYTES % (AUTO) 7.7 % (4-12); Mean Corpuscular Hemoglobin 28.4 pg (27.0-35.0); Mean Corpuscular Volume 85.8 fL (81-100); NEUTROPHILS % (AUTO) 82.1 % (40-74); Platelet Count 371 bil/L (150-400)
[2016-11-10] MEDS ORDERED: Ondansetron 2 mg/mL 2 mL Inj IVPUSH ONE ×2 (17:05→19:35)
[2016-11-10] MEDS: HYDROmorphone 1 mg/mL Inj IVPUSH PRN ×3 (17:24→20:02)
[2016-11-10 17:26] LABS: TROPONIN T < 0.010 ug/L (0.0-0.011)
[2016-11-10 17:37] LABS: Lipase 18 U/L (13-60); Magnesium 1.8 mg/dL (1.6-2.6)
[2016-11-10] MEDS ORDERED: Iohexol 300 mg/mL 30 mL Inj PO ONE (17:55)
--- NOTE | 2016-11-10 18:18 | DRSVH ---
PROCEDURE: X-RAY CHEST ONE VIEW, PORTABLE ([id number]) INDICATIONS: SHORT OF BREATH TECHNIQUE: One view of the chest was acquired. COMPARISON: [facility], CR, XR CHEST 1VW (PORTABLE), 11/09/2016, 16:41. FINDINGS: Surgical changes and devices: Port-A-Cath is present with distal tip overlying the distal right atriu m, unchanged. Lungs and pleura: No pleural effusions or pneumothorax. Lungs are clear. Mediastinum: Mediastinal contours appear normal. Heart size is normal. Free air is identified unde r the hemidiaphragms, decreased compared to prior exam. Bones and chest wall: No suspicious bony lesions. Overlying soft tissues appear unremarkable. IMPRESSION: No acute pulmonary process. Decreased free intra-abdominal air compared to prior exam. I t is noted gastrostomy tube was placed on 11/09/16. The above findings were discussed with Dr. Josep Starkey on 11/10/16 at 6 PM. Dictated by: Sharonda Hummel M.D. on 11/10/2016 at 18:13 Approved by: Sharonda Hummel M.D. on 11/10/2016 at 18:16
[2016-11-10 20:04] VITALS: BP 145/74; PULSE 84; RESP 15; O2SAT 100
--- NOTE | 2016-11-10 20:21 | DRSVH ---
PROCEDURE: CT ABDOMEN AND PELVIS WITH CONTRAST ([id number]) INDICATIONS: severe abd pain, cancer, recent GT placement TECHNIQUE: After the administration of intravenous contrast, 5 mm thick sections acquired from the diaphragm to the symphysis. 5 mm coronal and sagittal reformats were acquired. For radiation dose reduction, the following was used: automated exposure control, adjustment of mA and/or kV according to patient siz e. COMPARISON: [facility], CR, XR SURG FLUORO C-ARM < 1 HR, 11/09/2016, 14:41. [facility], CR, XR CHEST 1VW (PORTABLE), 11/09/2016, 16:41. [facility], CT, CT CHEST ABD PELVIS W CON, 10/18/2016, 10:10. FINDINGS: Image quality: Excellent. ABDOMEN: Lung bases: Lung bases demonstrate unchanged subcentimeter pulmonary nodules. Heart size is normal. Solid organs: Liver and spleen are normal in size. Multiple heterogeneous low-attenuation lesions ar e present within the liver are felt to be relatively unchanged in size and number compared to prior e xam. Gallbladder is unremarkable. Biliary system is non dilated. Pancreas enhances normally. No ad renal nodules. Kidneys demonstrate normal size and enhancement, without hydronephrosis. There is th ickening of the distal esophagus. Peritoneum and bowel: Bowel loops demonstrate normal wall thickness and caliber. There has been deve lopment of prominent scattered fluid within the abdomen and pelvis, most severe in the lower abdomen and dependent pelvis. Free air is present within the abdomen. There is an overall appearance of mesen teric fat haziness. It is noted that there is a given history of recent G-tube placement. The G-tube is noted along the anterior aspect of the left timoteo-abdomen. There appears to be indentation of the anterior gastric wal l via the G-tube balloon. In addition, this is located immediately adjacent to a large pocket of free air. Location of the G-tube definitively within the lumen is not clearly visualized. It is noted carolyn t on chest x-ray dated 11/09/16, contrast injected through the G-tube appeared to demonstrate gastric o pacification. Nodes and vessels: . Aorta and inferior vena cava are normal in size. The previously identified ga strohepatic, periportal, periaortic and aortocaval metastatic adenopathy is unchanged. Miscellaneous: No ventral hernias. PELVIS: Genitourinary: Bladder wall thickness is normal. Miscellaneous: Inguinal lymph nodes with central hypodensity are again noted and remains a centimeter in size. Bones: No suspicious bony lesions. No vertebral body compression fractures. IMPRESSION: 1. Prominent free air and free fluid within the abdomen and pelvis. It is noted that a G-tube is pres ent. As described above, the balloon of the G-tube appears to be indenting the anterior gastric wall. However, images do not clearly identify the G-tube within the gastric lumen. It is noted that prior examinations do demonstrate injected contrast from the G-tube into the stomach, as well as decreased air on chest x-ray dated 11/10/16 compared to 11/09/16. Appearance they may be secondary to overlap of fr ee air or possibly retraction. Interval fluid and stranding of the abdominal and pelvic mesenteric f at possibly related to developing peritonitis or postsurgical inflammation. Recommend correlation to laboratory values. Definitive evaluation of G-tube placement may obtained with contrast injection. 2. Pulmonary nodules, hepatic masses, as well as mesenteric adenopathy consistent with metastatic dis ease is unchanged. The latter discuss with Dr. Josep Starkey on 11/10/16 at 8 PM. Dictated by: Sharonda Hummel M.D. on 11/10/2016 at 19:47 Approved by: Sharonda Hummel M.D. on 11/10/2016 at 20:19
[2016-11-10] MEDS ORDERED: 0.9% Sodium Chloride 1,000 ML IV ONE (20:40)
--- NOTE | 2016-11-10 20:49 | DRSVH ---
PROCEDURE: X-RAY NASOGASTRIC TUBE PLACEMENT WITH FLUOROSCOPY ([id number]) INDICATIONS: check placement of GT TECHNIQUE: The patient was placed in a supine position on the fluoroscopy table. Dilute Gastrografin was inject ed into the patient's G-tube under fluoroscopic guidance. FINDINGS: Contrast flowed medial to the G-tube and into the free space of the upper right abdomen. IMPRESSION: Extraluminal position of G-tube. The above findings were discussed with Dr. Robbin Martinez on 11/10/16 at 8:40 PM. Dictated by: Sharonda Hummel M.D. on 11/10/2016 at 20:46 Approved by: Sharonda Hummel M.D. on 11/10/2016 at 20:47
[2016-11-10] MEDS ORDERED: PIPERACILLIN TAZO IV ONE (20:50)
[2016-11-10] MEDS ORDERED: DEXTROSE 5% IV ONE (20:50)
--- NOTE | 2016-11-10 20:53 | PCM.HPANE ---
Patient Data Date of Service: Nov 10, 2016 Surgeon Admitting Provider: Attending Provider: Primary Care Physician:Ephraim He MD Other Provider: Reason for Visit Post Op Pain- Sob, Nausea, Abd. Pain Ht/WT & BMI Height (Feet): 5 Height (Inches): 6 Weight (Kilograms): 45.45 Body Mass Index 16.2 Allergies Coded Allergies: No Known Drug Allergies (Verified Allergy, Unknown, 11/10/16) Past Anesthesia History Anesthesia History: Denies:: Abnormal Airway, Anesthesia Reactions, Difficult Intubation, Fam Anesthesia Reaction, Fam Malignant Hypertherm, Malignant Hyperthermia Diabetes History Hx Diabetes?: No MRSA MRSA: No Medications Hypertension Medication: No Home Meds Incl Beta Matias: No Active Scripts Acetaminophen (Acetaminophen Liquid)650 Mg/20 Ml [id number] Mg PO Q6H PRN For Pain #400 ML Prov:Ramirez Burton MD 11/10/16 Reported Medications Lactose-Free Food (Ensure High Protein)237 Ml Exkgwx610 Ml PO DAILY 11/08/16 Discontinued Reported Medications Omeprazole 20 Mg Tablet.dr20 Mg PO DAILY 09/30/16 History History of ENT Problems?: Yes HEENT History: Positive for:: Dysphagia (Esophageal strictures) Denies:: Abnormal Airway Difficult Intubation Hearing Problem Sinus Problem TMJ Denture Type: None Teeth Condition: Broken Teeth Tooth Decay Missing Teeth Hx of Heart Problems?: No Cardiovascular History: Denies:: AICD Abdominal Aortic Aneurism Atrial Fibrillation Cardiac Surgery Chest Pain Congestive Heart Failure Edema Heart Murmur Hypertension Irregular Heartbeat Pacemaker Rheumatic Fever Thrombophlebitis Valvular Heart Disease Hx of Respiratory Problem?: No Respiratory History: Denies:: Asthma COPD Chest Surgery Cough Dyspnea Emphysema Hemoptysis Oxygen Administration Pneumonia Pulmonary Embolism Tuberculosis Use of C-PAP Machine Hx Neurologic Problems?: No Neurological History: Denies:: Alzheimer's Disease CVA Dementia Dizziness Headaches Parkinson's Disease Seizures Hx of GI Problems?: Yes (peritonitis secondary to g-tube complication) Hx of Problems?: No HX of Peritoneal Dialysis: No Male Hx: Denies:: Prostate Problems Scrotal Mass Testicular Surgery Skin History: Denies:: History Skin Disorders? Pressure Ulcers Hx Musculoskeletal Problems?: No Musculoskeletal History: Denies:: Back Injury Degenerative Joint Joint Replacement Musculoskeletal Trauma Hx of Psycho/Social Problems?: No Psycho Social History: Denies:: Anxiety Hx Depression Hx Surgeries?: Yes (LEFT EYE) Hx Any Other Health Problems?: No Other History: Positive for:: Cancer (Esophageal with mets) Denies:: Hospitalization Thyroid Disease History Blood Transfusions: Denies:: Blood Transfusions Hx Diabetes: No Hx Alcohol Use: NoHx Substance Use: Yes (METH-QUIT ONE WEEK AGO.) Smoking Status: Current Every Day Smoker Never Smoker Have You Smoked inLast 12 mo: Yes Stop/Bang LAURA Risk Assessment: Low Risk, <3 Yes Risk Assessment Category Category 1A: Patient has history of documented sleep apnea, and HAS NOT received any narcotic, sedative or anesthesia administration during this stay. Category 1B: Patient has history of documented sleep apnea, and HAS received any narcotic , sedative or anesthesia administration during this stay Category 2: Patient has SUSPECTED Obstructive Sleep Apnea, and HAS received any narcotic , sedative or anesthesia administration during this stay. Category 3: Patient has SUSPECTED Obstructive Sleep Apnea and HAS NOT received narcotic, sedative or anesthesia administration during this stay. Category 4: Outpatient in Procedural Areas with known sleep apnea or who screen positive for High Risk via the STOP/BANG questionnaire. Exam Exam Vital Signs Vital Signs Date Time Temp Pulse Resp B/P Pulse Ox O2 Delivery O2 Flow Rate FiO2 11/10/16 20:04 84 15 145/74 100 Room Air 11/10/16 16:15 36.6 74 18 168/89 100 Room Air General Appearance: Alert, Oriented X3, Cooperative HEENT/AIRWAY: MP 2, Neck Movement (OK), Mouth Opening (Wide) Lungs: Normal Air Movement, Diminished Heart: Regular Rate/Rhythm, Normal S1, Normal S2 Meds/Labs/Diagnostics Admission Meds Current Medications Ondansetron HCl (Zofran Inj) 4 mg ONCE ONCE IVPUSH Last administered on 17:23; Start 11/10/16 at 17:05; Stop 11/10/16 at 17:07; Status DC Iohexol (Omnipaque-300 Inj) 3,000 mg ONCE ONCE PO Last administered on 18:22; Start 11/10/16 at 17:55; Stop 11/10/16 at 17:56; Status DC Ondansetron HCl (Zofran Inj) 4 mg ONCE ONCE IVPUSH Last administered on 19:35; Start 11/10/16 at 19:35; Stop 11/10/16 at 19:36; Status DC Labs Test 11/10/16 16:50 11/10/16 17:11 White Blood Count 4.8th/mm3 (3.8-10.1) Red Blood Count 4.65mil/mm3 (4.40-5.80) Hemoglobin 13.2g/dL (13.8-17.2) Hematocrit 39.9% (41.0-50.0) Mean Corpuscular Volume 85.8fL (81-100) Mean Corpuscular Hemoglobin 28.4pg (27.0-35.0) Mean Corpuscular Hemoglobin Concent 33.1% (32.0-37.0) Red Cell Distribution Width 14.3% (12.3-15.4) Platelet Count 371bil/L (150-400) Neutrophils (%) (Auto) 82.1% (40-74) Lymphocytes (%) (Auto) 10.0% (14-46) Monocytes (%) (Auto) 7.7% (4-12) Eosinophils (%) (Auto) 0% (0-5) Basophils (%) (Auto) 0.2% (0-3) Sodium Level 132mEq/L (134-144) Potassium Level 4.4mEq/L (3.5-5.2) Chloride Level 92mEq/L (97-108) Carbon Dioxide Level 25mmol/L (18-29) Blood Urea Nitrogen 32mg/dL (6-24) Creatinine 0.93mg/dL (0.76-1.27) Estimat Glomerular Filtration Rate 89mL/min (>59) Glucose Level 190mg/dL (60-99) Calcium Level 9.1mg/dL (8.5-10.1) Magnesium Level 1.8mg/dL (1.6-2.6) Total Bilirubin 0.7mg/dL (0.0-1.2) Aspartate Amino Transf (AST/SGOT) 28U/L (0-50) Alanine Aminotransferase (ALT/SGPT) 36U/L (0-44) Alkaline Phosphatase 117U/L (25-150) Troponin T < 0.010ug/L (0.0-0.011) Total Protein 6.6g/dL (6.4-8.4) Albumin 3.6g/dL (3.4-5.0) Lipase 18U/L (13-60) Lactic Acid Level 2.2mmol/L (0.4-2.0) Plan Impression Patient chart reviewed, patient interviewed and anesthestic plan with risks, benefits, and alternatives discussed, and informed consent obtained. NPO per Anesth. Guidelines: No (g-tube feedings this AM, unknown how much entered stomach. Presume full stomach) ASA Physical Status: ASA3 Plus Emergency Anesthetic Plan: GA Bene/Risks/Altern/Consents: Yes HP Complete Prior to Induction: Yes Driss Sims MD Nov 10, 2016 20:53
[2016-11-10] MEDS ORDERED: Propofol 10,000 mCg/mL 20 mL Inj ONE (21:11)
[2016-11-10] MEDS ORDERED: EPHEDrine/NS 5 mg/mL 5 mL Syringe ONE (21:11)
[2016-11-10] MEDS ORDERED: Phenylephrine/NS 100 mCg/mL 10 mL Syringe IVPUSH ONE (21:11)
[2016-11-10] MEDS ORDERED: Neostigmine 1 mg/mL 10 mL Inj ONE (21:11)
[2016-11-10] MEDS ORDERED: Glycopyrrolate 0.2 MG/ML 1mL Inj ONE (21:11)
[2016-11-10] MEDS ORDERED: Rocuronium 10 mg/mL 5 mL Inj ONE (21:11)
[2016-11-10] MEDS ORDERED: Ondansetron 2 mg/mL 2 mL Inj ONE (21:11)
[2016-11-10] MEDS ORDERED: Succinylcholine Chloride 20 mg/mL 5 mL Inj ONE (21:11)
[2016-11-10] MEDS ORDERED: fentaNYL-PF 50 mCg/mL 2 mL Inj ONE (21:11)
[2016-11-10 21:27] VITALS: BP 153/79; PULSE 87; RESP 14; O2SAT 100
[2016-11-10] MEDS ORDERED: Lactated Ringer's 1,000 ML IV SCH (22:04)
[2016-11-10] MEDS ORDERED: Lactated Ringer's 500 ML IV PRN (22:04)
[2016-11-10] MEDS ORDERED: HYDROmorphone 1 mg/mL Inj IVPUSH PRN (22:05)
[2016-11-10] MEDS ORDERED: Dexamethasone 4 mg/mL Inj IVPUSH PRN (22:05)
[2016-11-10] MEDS ORDERED: EPHEDrine Sulfate 50 mg/mL Inj IVPUSH PRN (22:05)
[2016-11-10] MEDS ORDERED: hydrALAZINE 20 mg/mL Inj IVPUSH PRN (22:05)
[2016-11-10] MEDS ORDERED: Labetalol 5 mg/mL 20 mL Inj IV PRN (22:05)
[2016-11-10] MEDS ORDERED: Atropine 0.4 mg/mL Inj IVPUSH PRN (22:05)
[2016-11-10] MEDS ORDERED: Phenylephrine 10,000 mCg/mL Inj IVPUSH PRN (22:05)
[2016-11-10] MEDS ORDERED: Ondansetron 2 mg/mL 2 mL Inj IVPUSH PRN (22:05)
[2016-11-10] MEDS ORDERED: MetoCLOpramide 5 mg/mL 2 mL Inj IVPUSH PRN (22:05)
[2016-11-10] MEDS ORDERED: fentaNYL-PF 50 mCg/mL 2 mL Inj IVPUSH PRN (22:05)
[2016-11-10] MEDS ORDERED: Bupivacaine-MPF 0.5% 30 mL Inj INFILTRATE ONE (22:10)
[2016-11-10] MEDS ORDERED: Lactated Ringer's 1,000 ML IV ONE (22:11)
--- NOTE | 2016-11-10 23:08 | HP ---
[address] [address] HISTORY AND PHYSICAL PATIENT: NISA WINN : 1960 MR#: [id number] ADMIT: 11/10/2016 JOB ID: [id number] DATE OF SERVICE: 11/10/2016 CHIEF COMPLAINT: A 56-year-old gentleman with metastatic esophageal cancer that I performed a laparoscopic gastrostomy tube placement yesterday seen in consultation again for abdominal pain in the acute postoperative period. HISTORY OF PRESENT ILLNESS: The patient is a 56-year-old gentleman who presented with solid-food dysphagia in September and Dr. Lino performed an EGD and diagnosed him with a malignant distal esophageal stricture that he was unable to traverse. The pathology results were consistent with poorly differentiated adenocarcinoma. He was seen by Dr. Alvarado for palliative radiation and he has lost about 40 pounds of weight during this time. I saw him in consultation for G tube and placed a left subclavian tunneled central venous catheter and a laparoscopic gastrostomy tube yesterday, that was November 09, 2016. Today in the postoperative period, he felt fine overnight and we initiated feeds, and I believed that he was doing okay but the patient now tells me that he had some abdominal discomfort from the time feeds were initiated. After that, he went over to Radiation to get started on radiation, but because of the discomfort he could not lay still and went home. After that, the discomfort did not get better, prompting him to call me and then come to the emergency department. In the emergency department, he was evaluated by Dr. Starkey and I was asked to see him. OTHER MEDICAL PROBLEMS: Left eye blindness. PRIOR OPERATIONS: None. FAMILY HISTORY: Mother had pancreatic cancer. One daughter had cervical cancer. SOCIAL HISTORY: He does smoke marijuana and had problems with methamphetamine use in the past, problems with alcohol in the past. Quit 10 years ago. He never smoked cigarettes. INVESTIGATIONS: Labs from November 10, 2016, WBC 4.8, hemoglobin 13.2, hematocrit 39.9, platelet count 371. Creatinine 0.93, lactate 2.2, normal liver function studies. Chest x-ray performed showed decreased intra-abdominal free air compared to before, but CT abdomen and pelvis showed some free fluid in the abdomen and the pelvis and the balloon of the G-tube appeared to be outside the anterior gastric wall. Given these findings, Dr. Rizvi from Radiology went on to perform a fluoroscopic injection of the G-tube at which time the contrast did not appear to go into the gastric lumen. PHYSICAL EXAMINATION: A 56-year-old gentleman in no acute distress. BMI 16.2, temperature 36.6, pulse 84, respiratory rate 15, blood pressure 145/74, saturating 100% on room air. Ears, nose and throat: Normal external appearance. Neck: No adenopathy. Respiratory: Normal air entry. Cardiovascular: Regular rate and rhythm. Gastrointestinal: Tender to palpation in the right side of the abdomen and pelvis. Neurologic: No focal deficits. Psych: Alert, appropriate. ASSESSMENT AND PLAN: Displaced gastrostomy tube with peritonitis. Recommended broad-spectrum antibiotics with fluid resuscitation and going back to the operating room for laparoscopy and possible laparotomy with abdominal washout and replacement of the gastrostomy tube. After discussing the risks, benefits, and alternatives, the patient wished to proceed and we will go ahead as soon as possible.
[2016-11-11] VITALS (12 sets, daily range): BP systolic 125–156; BP diastolic 63–87; PULSE 83–97; RESP 11–19; O2SAT 94–100
--- NOTE | 2016-11-11 00:20 | PCM.ANEP1 ---
Post Anesthesia PACU Phase 1 Assessment Date of Service: Nov 11, 2016 Vital Signs Vital Signs Date Time Temp Pulse Resp B/P Pulse Ox O2 Delivery O2 Flow Rate FiO2 11/10/16 21:27 36.7 87 14 153/79 100 Room Air 11/10/16 20:04 84 15 145/74 100 Room Air Anesthetic Administered: GA Level of Alertness: Awake, talking CAMP's with Equal Strength: No Pain: No Nausea or Vomiting: No CV Function & Hydration Stable: Yes Airway Device: Oxygen Delivery: Simple Mask Lungs: Diminished Dermatome Level: Full Sensation PACU Phase 2 Assessment Complications: No Follow up Care: N/A Patient Instructions Provided: N/A Driss Sims MD Nov 11, 2016 00:20
--- NOTE | 2016-11-11 00:22 | PCM.SURGPO ---
Immediate Operative Note Date of Surgery: Nov 11, 2016 Pre Operative Diagnosis Displaced Gastrostomy tube, Peritonitis Post Operative Diagnosis Displaced Gastrostomy tube, Peritonitis Procedure Laparoscopy, Abdominal Washout, Laparotomy, Closure of Gastrostomy, New Abhi Gastrostomy tube placement Surgeon and Lapel Baster Surgeon: Tanisha Martinez MD Assistants: Jermain Ramos, PAC Findings Peritonitis. Balloon in Submucosal location with extravasation of G-tube infusions Complications There were no periprocedural complications identified. Surgical Specimen Removed: Yes Specimen sent to Pathology: No Surgical Specimen description: Peritoneal fluid Anesthetic Administered: GA Grafts, Implants: Implants-See Implant Record Output, Estimated Blood Loss: 2 Blood Admin during surgery: No Attending Statement Qc Lab Technician listed was medically necessary for the successful completion of the case Tanisha Martinez MD Nov 11, 2016 00:22
[2016-11-11] MEDS ORDERED: Ondansetron 2 mg/mL 2 mL Inj IVPUSH PRN (00:30)
[2016-11-11] MEDS ORDERED: HYDROmorphone 1 mg/mL Inj IVPUSH PRN (00:30)
[2016-11-11] MEDS ORDERED: MetoCLOpramide 5 mg/mL 2 mL Inj IVPUSH PRN (00:30)
--- NOTE | 2016-11-11 01:33 | OP ---
[address] [address] OPERATIVE REPORT PATIENT: NISA WINN : 1960 MR#: [id number] ADMIT: 11/10/2016 JOB ID: [id number] DATE OF SURGERY: 11/10/2016 PREOPERATIVE DIAGNOSIS(ES): Displaced gastrostomy tube with peritonitis. POSTOPERATIVE DIAGNOSIS(ES): Displaced gastrostomy tube with peritonitis. PROCEDURE PERFORMED: Laparoscopy, abdominal washout, laparotomy, closure of gastrostomy, with new Abhi gastrostomy tube placement. SURGEON: Tanisha Martinez MD. JEWEL SORTER: Jermain Ramos PA-C. COMPLICATIONS: None. CONDITION OF THE PATIENT: Stable. INDICATIONS: The patient is a 56-year-old gentleman who presented with solid food dysphagia in September and Dr. Lino performed an EGD and diagnosed with a malignant esophageal structure that he was unable to traverse. Pathology results were consistent with poorly differentiated adenocarcinoma. He was seen by Dr. Alvarado for palliative radiation and lost about 40 pounds of weight during this time. I was involved in his care due to malnutrition and for placement of gastrostomy tube. I placed a laparoscopic gastrostomy tube along a tunneled left subclavian central venous catheter yesterday. He did well in the immediate postoperative period, but he started having abdominal pain after discharge home today. He came back to the emergency department and evaluation in the emergency department included a CT scan, followed by contrast injection of the G-tube; both of them were concerning for extraluminal position of the G-tube. After discussing the risks, benefits, and alternatives, he wished to proceed with laparoscopic exploration, along with possible laparotomy and replacement of the G-tube. PROCEDURE DETAILS: He was placed in a supine position. Underwent smooth induction of general anesthesia. Abdomen was prepped and draped in the usual sterile fashion. Surgical time-out was undertaken using safety checklist and all were in agreement. I began by opening up his old umbilical incision, entered the abdomen and obtained pneumoperitoneum. Immediately upon entering the abdomen we did notice signs of peritonitis with fibrinous exudate and clear fluid in the pelvis. Suctioned and irrigated out as much fluid as we could get, and initially we could not see an obvious defect in the stomach. But, then we tried infusing some saline through the G-tube and noticed extravasation of the saline at the superior aspect of the gastrotomy and we could see that the balloon was exposed in a submucosal location. At this point, I went ahead and made a small upper midline laparotomy, placed a wound protector and removed the G-tube. I then detached the stomach from the anterior abdominal wall and placed 3-0 Vicryl sutures through the old site where the serosa was from the mucosa. After using these stay sutures, I used a 30 mm TA stapler to close this gastrotomy, and then over-sewed it with 3-0 silk sutures. I then freshened the fascial incision site where the G-tube was placed previously, removing all sutures, and then chose a fresh site on the stomach and placed Abhi sutures with silk and a pursestring in the middle with 3-0 Vicryl, and made a gastrotomy with cautery, and placed 18-Faroese G-tube back through the abdominal wall defect and then advanced it into the stomach. I then insufflated the balloon with water and made sure the stomach is draining out clearly emptying gastric contents, and also that the fluids were able to infuse easily into the stomach, indicating that it is in a good intraluminal location. After that, I tied down the pursestring and the Abhi sutures and closed the fascial incision with a running 0 PDS suture. I then irrigated the wound and again inspected the G-tube laparoscopically while infusing saline. After that, I placed a drain in the pelvis under laparoscopic guidance by additionally putting an additional 5 mm port in the pelvis. At this point, I desufflated the abdomen and closed the umbilical port fascia with [id number] 0-Vicryl suture, and we then reapproximated the skin loosely with interrupted 3-0 Vicryl and loosely dressed the incision, and then secured the left G-tube to gravity drainage. Connected the drain to bulb suction and then woke up the patient from anesthesia and took him to the recovery room in stable condition. LILLI
[2016-11-11] MEDS: Piperacillin-Tazo 3.375 Gm Inj 3.375 GM in Dextrose 5% Minibag Plus 50 ML IV SCH ×3 (01:45→17:01)
[2016-11-11] MEDS: Dextrose 5% 0.9% NaCl 1,000 ML IV SCH ×2 (01:45→14:46)
--- NOTE | 2016-11-11 05:34 | NUR ---
Admission/pain Pt arrived onto [facility] from PACU via bed, he was alert and oriented x 3 at 0115. Denies chest pain/pressure, shortness of breath and general pain. Pt on 2L SPO2 high 90s. No s/sx of distress. Pt noted with midline RAH drain to suction with serossanguineous drainage noted. Gauze and abd pad midline along with tape c/d/i. Pt also had a LT side GT tube draining to gravity inside a closed sterile glove from OR. Pt oriented to room, call light, bed controls, bathroom, television, and telephone. NPO. VSS. Care continues.
--- NOTE | 2016-11-11 09:05 | NUR ---
NUTRITION ASSESSMENT: ASSESS: 56 YO patient re-admitted for peritonitis and misplaced PEG tube, notes indicate pt to go to the OR for laparascopy, possible laparotomy with abdominal washout and replacement of gastrostomy tube. Pt with PEG placement in relation to esophageal CA with weight loss and difficulty swallowing/maintaining adequate po intake. 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 Skin Integrity: No issues reported. ANTHROPOMETRICS: Current Wt: 45.6 kg BMI: 16.2 kg/m2. Pt reports he has lost 40 pounds = 18.18 kg = 28.78% x 3 months = severe malnutrition. IBW: 63.8 kg (71% IBW) ESTIMATED NEEDS (CANCER CACHEXIA): Calories: 1575 - 1800 kcal (35 - 40 kca/ kg BW) Protein 68 - 90 g protein (1.5 - 2.0 g / kg BW) Fluid: Approx. 1575 mL (35 mL/ kg BW) NUTRITION DIAGNOSIS: 1) Severe malnutrition related to rapidly progressing esophageal cancer with mets, as evidenced by 28.78% BW loss x 3 months. INTERVENTION 1) Enteral feeding recommendation follows; Jevity 1.5 at 15ml/hr advancing slowly at 5ml q 8 hrs to goal rate of 50ml/hr (x23hrs) providing 1725kcal, 73g protein. 2) Once the patient refeeding risk resolved and tube feeding well tolerated recommend nocturnal feeding x 12 hr. Once pt. clearly tolerating enteral feeding, recommend slowly increasing nocturnal feeding to 95 mL/hr x 12 hours nocturnally to provide 1710kcal,71 g protein. 2) In the event pt. unable to qualify for pump, recommend bolus feedings throughout the day calculated to meet patient's nutrient needs. 3) Our outpatient RD's will follow [facility] to provide support and encouragement as his treatment progresses. MONITOR/EVALUATE: NPO status, enteral feeding initiation / advance / tolerance, POC, labs, weight, nutritional status. Follow up per high nutrition risk guidelines. Addendum: 11/11/16 at [address] Unsigned tube feeding orders placed in chart (see above for rate/etc) with Flush dose of 30ml q 2hrs with IV fluids running (1350ml 11/10,408ml 11/11). As IV fluids discontinued would modify to 60ml q 2hrs to provide 1594ml fluid (with tube feeding running at goal rate).
[2016-11-11] MEDS: Famotidine Inj 20 MG in IV Premix 1 EACH IV SCH ×2 (09:28→20:06)
--- NOTE | 2016-11-11 09:32 | PCM.PNSURG ---
Subjective Date of Service: Nov 11, 2016 Date of Service: Nov 11, 2016 Visit Information: Reason for Visit Displaced Gastrotomy Pentinitis Surgery/Surgery Date Post-Op Day # 1 Date of Admission: Nov 10, 2016 at 21:10 Hospital Day # 2 Subjective: Sergio reports that the pain he came in with has dissipated. He has some incisional pain but this is well controlled with IV dilaudid prn. Denies nausea, emesis. G tube to gravity with bilious output. No acute events overnight, afebrile, vital signs stable. Objective Vital Sign- Last 8 Hours Date Time Temp Pulse Resp B/P Pulse Ox O2 Delivery O2 Flow Rate FiO2 11/11/16 08:24 36.5 96 19 156/84 100 Room Air 11/11/16 05:05 36.7 92 17 145/72 95 Nasal Cannula 2.00 11/11/16 01:15 36.7 96 17 153/70 100 Nasal Cannula 2.00 Intake and Output- Last 8 Hour 11/11/16 Cumulative From/Thru 07:00 11/10/16 00:30 - 11/11/16 06:12 Intake Total 408 ml 1758 ml Output Total 397 ml 452 ml Balance 11 ml 1306 ml Intake Oral 0 ml 0 ml IV Total 408 ml 1758 ml Output Urine Total 350 ml 380 ml Drainage Total 45 ml 70 ml Estimated Blood Loss 2 ml 2 ml # Bowel Movements 0 0 General: Alert, Oriented X3, Cooperative, No Acute Distress, Other (Thin, malnourished appearing.) Lungs: Clear to Auscultation, Normal Air Movement Heart: Regular Rate/Rhythm, Normal S1, No Murmurs/Rubs/Gallops Abdomen: Other (Soft, appropriately tender at G tube site and mini laparotomy site. Non distended, no peritoneal signs.) Extremities: Warm Neuro: Grossly Neurologically Intact Catheters: Urethral 2 Way Giron Result Diagram: 11/10/16 16511/10/16 165 Assessment & Plan Impression 56 yo M with 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 Problems: Plan NEURO: Liquid tylenol scheduled. PRN IV dilaudid only for severe breakthrough pain. FEN/GI: Clear liquid diet. If nausea/vomiting - make NPO. G tube capped today. RAH drain to bulb suction. Anti emetics prn. Will hold off on parenteral nutrition. Hoping to resume tube feeding tomorrow if capping G tube and clear liquids tolerated. Continue mIVF at 70cc/hr. Continue famotidine IV today. ID: Continue Zosyn. RENAL: Discontinue giron catheter. MSK: Ambulate TID DISPO: Will need to be tolerating tube feeding without issues before discharge home. VTE Prophylaxis: Sub-Q Heparin (Unfractionated) Ramirez Burton MD Nov 11, 2016 09:32
[2016-11-11] MEDS: Acetaminophen 32.5 mg/mL 20 mL Liquid PO SCH ×3 (10:53→21:20)
--- NOTE | 2016-11-11 14:53 | NUR ---
Activity Pt tolerating sips of clears w/o nausea or vomiting. G-tube plugged this AM. Pt had giron out at 1100 and has not voided yet. Will obtain bladder scan. Pt sleeping for most of shift and declines to ambulate. Needs simple directions and lots of education about what is being done for him. Transferring care to JOSSELIN Fernandez at 1515. Addendum: 11/11/16 at 1507 by ANGEL CELIS RN Midline dressing is CDI and RAH drain has sero-sanguinous drainage.
[2016-11-12] MEDS: Piperacillin-Tazo 3.375 Gm Inj 3.375 GM in Dextrose 5% Minibag Plus 50 ML IV SCH ×3 (01:05→17:15)
[2016-11-12] MEDS: Acetaminophen 32.5 mg/mL 20 mL Liquid PO SCH ×4 (03:19→23:00)
--- NOTE | 2016-11-12 04:31 | NUR ---
GI/Activity Pt is alert, oriented, and able to make needs known. No decreased in LOC noted. Pleasant and cooperative with care. Denies N/V/D, pain, resp distress or SOB. Tolerates full liquid diet so far prefer the broth and the Ice cream. No c/o nausea and no episode of vomiting. Wants to wait on the tube feeding the until morning of 11/12/16. Ambulate to bathroom x2 with SBA for toileting with no safety issue. Care continues.
[2016-11-12 05:15] VITALS: BP 131/60; PULSE 65; RESP 17; O2SAT 95
[2016-11-12 05:37] LABS: BASOPHILS % (AUTO) 0.1 % (0-3); EOSINOPHILS % (AUTO) 1.2 % (0-5); MONOCYTES % (AUTO) 7.2 % (4-12); Mean Corpuscular Hemoglobin 28.4 pg (27.0-35.0); Mean Corpuscular Volume 88.6 fL (81-100); NEUTROPHILS % (AUTO) 82.1 % (40-74); Platelet Count 231 bil/L (150-400)
[2016-11-12] MEDS: Dextrose 5% 0.9% NaCl 1,000 ML IV SCH ×2 (06:00→20:44)
[2016-11-12] MEDS: Famotidine Inj 20 MG in IV Premix 1 EACH IV SCH ×2 (10:43→20:44)
--- NOTE | 2016-11-12 12:42 | PCM.PNSURG ---
Subjective Date of Service: Nov 12, 2016 Date of Service: Nov 12, 2016 Visit Information: Reason for Visit Displaced Gastrotomy Pentinitis Surgery/Surgery Date Post-Op Day # 2 Date of Admission: Nov 10, 2016 at 21:10 Hospital Day #2 Subjective: No acute events overnight. Tolerated full liquid diet. Starting trickle tube feeds this morning. Afebrile, VSS. Abdominal pain resolved. Objective Vital Sign- Last 8 Hours Date Time Temp Pulse Resp B/P Pulse Ox O2 Delivery O2 Flow Rate FiO2 11/12/16 05:15 37.1 65 17 131/60 95 Room Air Intake and Output- Last 8 Hour 11/12/16 Cumulative From/Thru 07:00 11/10/16 00:30 - 11/12/16 05:57 Intake Total 1727 ml 4646 ml Output Total 570 ml 1527 ml Balance 1157 ml 3119 ml Intake Oral 1118 ml 1338 ml IV Total 609 ml 3308 ml Output Urine Total 450 ml 1105 ml Drainage Total 120 ml 420 ml Estimated Blood Loss 2 ml # Bowel Movements 0 0 General: Alert, Oriented X3, Cooperative, No Acute Distress Lungs: Clear to Auscultation, Normal Air Movement Heart: Regular Rate/Rhythm, Normal S1 Abdomen: Other (G tube site bolstered. Abdominal incisions c/d/i. 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 Problems: Plan NEURO: Liquid tylenol scheduled. PRN IV dilaudid only for severe breakthrough pain. FEN/GI: Full liquid diet. RAH drain to bulb suction. Anti emetics prn. Continue mIVF at 70cc/hr. Continue famotidine IV today. Start trickle tube feeding at 10cc/hr today. Considering advancing to 20cc/hr tomorrow AM. ID: Continue Zosyn. MSK: Ambulate TID DISPO: Will need to be tolerating tube feeding without issues before discharge home. VTE Prophylaxis: Sub-Q Heparin (Unfractionated) Ramirez Burton MD Nov 12, 2016 12:42
[2016-11-12 12:53] VITALS: BP 146/74; PULSE 58; RESP 16; O2SAT 95
--- NOTE | 2016-11-12 12:54 | NUR ---
Tube Feeding Started Per Dr. Gonsalez, tube feeding started at 1230. Per Dietary note, Jevity 1.5 to start at 15mL/hr. Increase Jevity 1.5 by 5mL every 8 hours until goal rate of 50mL/hr is reached. Flush 30mL every 2 hours with IV fluids running. If no IV fluids, flush 60mL every 2 hours. Patient tolerating tube feedings at this time. Will continue to monitor patient hourly.
[2016-11-12 14:36] VITALS: PULSE 69; RESP 16; O2SAT 97
--- NOTE | 2016-11-12 16:08 | NUR ---
NUTRITION FOLLOW-UP: ASSESS: 56 YO male re-admitted with peritonitis and misplaced PEG tube. POD #2 following exploratory laparotomy, abdominal washout, closure of gastrostomy, and new iza gastrostomy tube placement to mitigate nutritional inadequacy in patient with esophageal CA, weight loss and difficulty swallowing. Surgery authorized initiation of PEG tube feeding this afternoon, per RD recommendation. Plan is to advance to goal prior to discharge. Nursing reporting that patient is tolerating enteral feeding well currently. 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 DIET: Full liquids. Pt. tolerating only Magic Cups and Ensure at this point in time. ENTERAL FEEDING: Jevity 1.5 advancing 5ml q 8 hr to goal rate of 50 ml/hr (x 23hrs) providing 1725 kcal, 73 g protein., meeting approx. 100% nutrient needs. Flush dose of 30ml q 2hrs with IV fluids running (1350ml 9/7, 408ml 9/8). As IV fluids discontinued would modify to 60ml q 2hrs to provide 1594ml fluid (with tube feeding running at goal rate). NUTRITION FOCUSED PHYSICAL ASSESSMENT: GI symptoms / stool: No problems reported with lower GI tract. Skin Integrity: No issues reported. ANTHROPOMETRICS: Current Wt: 45.6 kg BMI: 16.2 kg/m2. Pt reports he has lost 40 pounds = 18.18 kg = 28.78% x 3 months = severe malnutrition. IBW: 63.8 kg (71% IBW) ESTIMATED NEEDS (CANCER CACHEXIA): Calories: 1575 - 1800 kcal (35 - 40 kca/ kg BW) Protein 68 - 90 g protein (1.5 - 2.0 g / kg BW) Fluid: Approx. 1575 mL (35 mL/ kg BW) NUTRITION DIAGNOSIS: 1) Severe malnutrition related to rapidly progressing esophageal cancer with mets, as evidenced by 28.78% BW loss x 3 months - PERSISTS. INTERVENTION 1) Once refeeding risk resolved and tube feeding well tolerated, recommend nocturnal feeding x 12 hr. Once pt. clearly tolerating enteral feeding, recommend slowly increasing nocturnal feeding to 95 mL/hr x 12 hours nocturnally to provide 1710 kcal,71 g protein. 2) In the event pt. unable to qualify for pump, recommend bolus feedings throughout the day calculated to meet patient's nutrient needs. 3) Our outpatient RD's will [facility] to provide support and encouragement as his treatment progresses. MONITOR/EVALUATE: PO intake, enteral feeding advance / tolerance, POC, labs, weight, nutritional status. Follow up per high nutrition risk guidelines.
--- NOTE | 2016-11-12 17:50 | NUR ---
Social Work Note: Brief Note Data& Assessment: Sergio Moseley is a 56 year old male admitted on 11/10/2016 for displaced gastrotomy pentinitis. Pt has [employer] insurance coverage and sees Ephraim He MD for primary care. Pt lives alone and has a hx of meth use. CONCRETE MASON to follow up with pt regarding initial assessment. CONCRETE MASON to follow up with pt regarding substance use pending MD order. Pt currently on tube feeds. CONCRETE MASON to continue to follow. Plan: CONCRETE MASON to follow up with pt regarding initial assessment and continue to follow for MD orders and discharge needs. No orders identified at this time. JOSIE Escobar
[2016-11-12 20:30] VITALS: BP 139/77; PULSE 67; RESP 16; O2SAT 99
[2016-11-13] MEDS: Piperacillin-Tazo 3.375 Gm Inj 3.375 GM in Dextrose 5% Minibag Plus 50 ML IV SCH ×3 (01:00→17:41)
--- NOTE | 2016-11-13 03:36 | NUR ---
Tube feeding/Rash Pt is tolerating Tube feeding well so far with 5ml increased per orders. at this current moment jevity 1.5 running at 20ml/hr and flush 30cc every 2hours with IV fluid running. Pt noted with redness on his face, neck and chest area rash like. Pt denies any discomfort or SOB. Vital signs stable and afebrile. This LN called the on-call doctor for doctor Martinez and spoke with Peña Otto. Order received for Benadryl 50mg IV push Q6 hours as needed. Benadryl admin per order and w/in an hour redness on pt improved significantly. Will continue to monitor.
[2016-11-13] MEDS: Acetaminophen 32.5 mg/mL 20 mL Liquid PO SCH ×4 (04:50→21:35)
[2016-11-13 05:50] VITALS: BP 164/82; PULSE 56; RESP 16; O2SAT 100
[2016-11-13] MEDS: Famotidine Inj 20 MG in IV Premix 1 EACH IV SCH (08:44)
--- NOTE | 2016-11-13 11:06 | PCM.PNSURG ---
Subjective Date of Service: Nov 13, 2016 Date of Service: Nov 13, 2016 Visit Information: Reason for Visit Displaced Gastrotomy Pentinitis Surgery/Surgery Date Post-Op Day # 3 Date of Admission: Nov 10, 2016 at 21:10 Hospital Day # 3 Subjective: Feeling well this morning, tolerating advance in tube feeds to 20cc/hr. No N/V. Tolerating FLD. Pain well controlled. Objective Vital Sign- Last 8 Hours Date Time Temp Pulse Resp B/P Pulse Ox O2 Delivery O2 Flow Rate FiO2 11/13/16 05:50 36.7 56 16 164/82 100 Room Air Intake and Output- Last 8 Hour 11/13/16 Cumulative From/Thru 07:00 11/10/16 00:30 - 11/13/16 06:55 Intake Total 1603 ml 7774 ml Output Total 440 ml 2077 ml Balance 1163 ml 5697 ml Intake Oral 300 ml 2135 ml IV Total 960 ml 5162 ml Tube Feeding 193 ml 267 ml Tube Irrigant 150 ml 210 ml Output Urine Total 400 ml 1505 ml Drainage Total 40 ml 570 ml Estimated Blood Loss 2 ml # Voids 1 # Bowel Movements 0 0 General: Alert, Oriented X3, Cooperative, No Acute Distress Lungs: Clear to Auscultation, Normal Air Movement Heart: Regular Rate/Rhythm, No Murmurs/Rubs/Gallops Abdomen: Benign, Soft, Non-tender, Non-distended, Other (G tube site c/d/i, incisions c/d/i, RAH drain with serosanguinous output.) Extremities: Warm Neuro: Grossly Neurologically Intact Catheters: None Result Diagram: 11/12/16 0525 11/12/16 0525 Assessment & Plan Impression 56 yo M with 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 Problems: Plan NEURO: Liquid tylenol scheduled. D/C IV dilaudid. FEN/GI: Full liquid diet. RAH drain to bulb suction - consider removing tomorrow. Anti emetics prn. Continue mIVF at 70cc/hr. Continue famotidine PO Increase trickle tube feeding to 20cc/hr today. Will need to write resume tube feeding orders for home on discharge and appropriate rate. ID: Continue Zosyn. MSK: Ambulate TID DISPO: Will need to be tolerating tube feeding without issues before discharge home. VTE Prophylaxis: Sub-Q Heparin (Unfractionated) Ramirez Burton MD Nov 13, 2016 11:06
[2016-11-13 12:24] VITALS: BP 167/86; PULSE 57; RESP 16; O2SAT 100
[2016-11-13] MEDS: Dextrose 5% 0.9% NaCl 1,000 ML IV SCH (14:05)
--- NOTE | 2016-11-13 16:17 | NUR ---
Social Work: Initial Assessment/Readiness for Discharge D: EMR reviewed. Please see Initial Assessment linked to this note for more information. Pt is a 56 year old male admitted [place] with a readmit risk score of 3 for displaced gastrotomy pentinitis per H&P. Pt's insurance is [employer]. PCP is Ephraim He MD. Surgery is primary on patient. Discussed with surgeon today, requested resumption of tube feed orders prior to d/c. SW met with pt at bedside to conduct initial assessment. Pt was alert and oriented x3. SW explained role and wrote phone number on white board. SW provided [facility] Discharge Planning Checklist and encouraged pt to contact SW for any discharge planning questions. Pt lives at home alone in [place]. Pt is independent with all ADLs at baseline. Pt uses no DME at baseline. Pt drives. Pt has no HH or SNF history. Pt has no LTC or VA benefits. Pt has no DPOA on file, provided pt with paperwork at bedside. Pt is open with [facility] for tube feeds. SW to contact [facility] tomorrow regarding coordination of services. Pt is likely to d/c home with daughter to transport via POV. SW will continue to follow. A: Pt who is independent at baseline and has the capacity for self-care. P: Pt anticipated to discharge home with daughter to transport via POV. Pt will require resumptions order for tube feeding through [facility]. Surgery Resident aware. No orders received at this time. SW will continue to follow for needs until time of discharge. JOSIE Odom Addendum: 11/13/16 at 1620 by MARY BETH BAEZ Amended: Links added.
--- NOTE | 2016-11-13 18:00 | NUR ---
IV Tylenol/Pain/Ambulation/Tube Feeds Per pt "minimal pain today, don't feel I need IV Tylenol." IV Tylenol held. Pt up and ambulating hallway today 3 times as requested, ind with steady gait. Tube feeds increased today 5mls q 8hrs; currently running at 30mls/hr and pt tolerating well, no c/o N/V. Care ongoing.
[2016-11-13 21:00] VITALS: BP 157/80; PULSE 71; RESP 17; O2SAT 98
[2016-11-13] MEDS: Famotidine 8 mg/mL 50 mL Suspension PO SCH (21:05)
[2016-11-14] MEDS: Piperacillin-Tazo 3.375 Gm Inj 3.375 GM in Dextrose 5% Minibag Plus 50 ML IV SCH ×2 (01:37→09:38)
[2016-11-14 05:09] VITALS: BP 152/84; PULSE 70; RESP 16; O2SAT 99
[2016-11-14] MEDS: Acetaminophen 32.5 mg/mL 20 mL Liquid PO SCH ×2 (05:09→09:35)
[2016-11-14] MEDS: Dextrose 5% 0.9% NaCl 1,000 ML IV SCH (05:09)
--- NOTE | 2016-11-14 05:52 | NUR ---
Shift Note assumed pt care at 1900, pt continues with tube feed currently at 35mls/hr, tolerating well, RAH patent draining well, continues with intermittent IV ABO, call light in reach at all times.
--- NOTE | 2016-11-14 08:11 | PCM.PNSURG ---
Subjective Date of Service: Nov 14, 2016 Date of Service: Nov 14, 2016 Visit Information: Reason for Visit Displaced Gastrotomy Pentinitis Surgery/Surgery Date Post-Op Day #4 Date of Admission: Nov 10, 2016 at 21:10 Hospital Day #4 Subjective: Mr. Larios states that he is doing well today with good pain control on liquid Tylenol. Per RN, patient required one dose IV Tylenol yesterday but did not need additional IV pain meds overnight or today. Patient has been tolerating tube feedings well without any complaints of nausea or vomiting. Tube feedings today are at 35cc/hour. He is able to ambulate the halls with 5-6 laps around the department throughout the day without difficulty. No reported bowel movements since surgery but patient notes that he is passing gas. Postop General: No Complaints Gastrointestinal: Tolerating Oral Feedings, No N/V, Passing Flatus Pain Management: PO, Good Pain Control Postop Activity: Ambulating Independently, Ambulating in [place] Objective Vital Sign- Last 8 Hours Date Time Temp Pulse Resp B/P Pulse Ox O2 Delivery O2 Flow Rate FiO2 11/14/16 05:09 36.8 70 16 152/84 99 Room Air Intake and Output- Last 8 Hour 11/14/16 Cumulative From/Thru 07:00 11/10/16 00:30 - 11/14/16 06:54 Intake Total 1691 ml 54816 ml Output Total 1035 ml 4669 ml Balance 656 ml 6134 ml Intake Oral 520 ml 3392 ml IV Total 673 ml 6436 ml Tube Feeding 347 ml 614 ml Tube Irrigant 151 ml 361 ml Output Urine Total 875 ml 3605 ml Gastric Drainage Total 252 ml Drainage Total 160 ml 810 ml Estimated Blood Loss 2 ml # Voids 1 # Bowel Movements 0 General: Alert, Oriented X3, Cooperative, No Acute Distress Neck: Supple Lungs: Clear to Auscultation, Normal Air Movement Heart: Regular Rate/Rhythm, No Murmurs/Rubs/Gallops Abdomen: Soft, Other (g-tube site appears well, incisions clean, dry and intact , RAH drain with serosanguinous output ) Extremities: Warm Result Diagram: 11/12/16 0511/12/16 05 Assessment & Plan Impression 56 YOM with 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 Problems: Plan Pain management: Liquid Tylenol scheduled. Continue full liquid diet with increase in tube feedings to max of 40cc/hr today. Goal of 50cc/hour, per air grinder. Discontinued IVFs today. Ordered Miralax 17g scheduled daily. Consider RAH drain removal tomorrow. Continue to ambulate TID with multiple laps around the department as tolerated. Continue IV Zosyn. Patient scheduled for radiation therapy today at noon. Disposition: Consider discharge tomorrow if patient continues to tolerate tube feedings without difficulty, has a bowel movement and receives qualification for a pump at home. Working with case management coordinator to arrange for pump at home. VTE Prophylaxis: Sub-Q Heparin (Unfractionated) Miguelina Atwood DO Nov 14, 2016 08:11
[2016-11-14] MEDS ORDERED: Polyethylene Glycol (PEG) 17 Gm Powder PO SCH (08:30)
[2016-11-14 08:35] VITALS: BP 154/91; PULSE 61; RESP 16; O2SAT 97
--- NOTE | 2016-11-14 09:12 | NUR ---
Social Work- Update Note EMR reviewed. Pt is on day 4 of hospitalization. Received note from Dr. Martinez inquiring about if pt has a kangaroo pump at home or if he does bolus feeds. T/C to Best, [facility] Liaison, regarding standing orders and pump vs. bolus. Best to look into this and return call after his morning meeting. SW to update Dr. Martinez when information is known. SUKUMAR will continue to follow. Abena Lobo, SECURITIES BROKER
[2016-11-14] MEDS: Famotidine 8 mg/mL 50 mL Suspension PO SCH (09:39)
--- NOTE | 2016-11-14 11:28 | NUR ---
Social Work- Readiness for Discharge Data: EMR reviewed. Pt is on day 4 of hospitalization. Home tube feeding order acknowledged. T/C from Best, liaison at [facility], regarding pt's pump at home. Best verifies that pt will be able to receive pump at home vs. bolus feeds. Best confirms that orders are appropriate and no additional orders are required. Dr. Martinez contacted regarding tube feeding pump at home, agreeable to discharge today after pt's radiation. SW updated patient and RN at bedside of plan, all agreeable. SW will continue to follow. Assessment: Pt who requires home tube feeds at home via pump Plan: Pt likely to discharge today after radiation. Pt to resume [facility] Tube Feeds with home pump. [facility] to update [employer] ARCHITECT as necessary, aware that pt is likely to d/c today. SW will continue to follow. Abena Lobo, [employer] ARCHITECT
--- NOTE | 2016-11-14 11:32 | NUR ---
NUTRITION FOLLOW-UP: ASSESS: 56 YO male re-admitted with peritonitis and misplaced PEG tube. POD #4 following exploratory laparotomy, abdominal washout, closure of gastrostomy, and new gastrostomy tube placement to mitigate nutritional inadequacy in patient with esophageal CA, weight loss and difficulty swallowing. Surgery authorized initiation of PEG tube feeding this afternoon, per RD recommendation. Plan is to advance to goal prior to discharge. Nursing reporting that patient is tolerating enteral feeding well currently. MD notes indicate no n/v, + gas, no BM yet. TF at 35ml/hr with goal of 50ml/hr. Case management working on tube feeding pump qualification. Pt receiving radiation therapy today. 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 Pt. tolerating only Magic Cups and Ensure at this point in time. ENTERAL FEEDING: Jevity 1.5 advancing 5ml q 8 hr to goal rate of 50 ml/hr (x 23hrs) providing 1725 kcal, 73 g protein., meeting approx. 100% nutrient needs. Flush dose of 30ml q 2hrs with IV fluids running (IV Fluids: 1503ml 9/9, 1561ml 9/10). As IV fluids discontinued would modify to 60ml q 2hrs to provide 1594ml fluid (with tube feeding running at goal rate). NUTRITION FOCUSED PHYSICAL ASSESSMENT: GI symptoms / stool: No problems reported with lower GI tract. Skin Integrity: No issues reported. ANTHROPOMETRICS: Current Wt: 52.0 kg BMI: 16.2 kg/m2. Pt reports he has lost 40 pounds = 18.18 kg = 28.78% x 3 months = severe malnutrition. IBW: 63.8 kg (71% IBW) ESTIMATED NEEDS (CANCER CACHEXIA): Calories: 1575 - 1800 kcal (35 - 40 kca/ kg BW) Protein 68 - 90 g protein (1.5 - 2.0 g / kg BW) Fluid: Approx. 1575 mL (35 mL/ kg BW) NUTRITION DIAGNOSIS: 1) Severe malnutrition related to rapidly progressing esophageal cancer with mets, as evidenced by 28.78% BW loss x 3 months - PERSISTS. INTERVENTION 1) Once refeeding risk resolved and tube feeding well tolerated, recommend nocturnal feeding x 12 hr. Once pt. clearly tolerating enteral feeding, recommend slowly increasing nocturnal feeding to 95 mL/hr x 12 hours nocturnally to provide 1710 kcal,71 g protein. 2) In the event pt. unable to qualify for pump, recommend bolus feedings throughout the day calculated to meet patient's nutrient needs. 3) Our outpatient RD's will [facility] to provide support and encouragement as his treatment progresses. MONITOR/EVALUATE: PO intake, enteral feeding advance / tolerance, POC, labs, weight, nutritional status. Follow up per high nutrition risk guidelines. Addendum: 11/14/16 at [address] Spoke with pt RN (Irene), IV fluids have been discontinued. RD placed updated TF'g orders in chart to increase fluids to 60ml q 2 hrs. Spoke with manager video games who reports pt has been approved for pump and infusion company setting up time to educate pt in home re pump use. Possible discharge today.
--- NOTE | 2016-11-14 12:10 | NUR ---
Pt to Oncology Clinic Pt left for radiation appt today and appt with Oncology; left by Care E Me, IV SL, RA, A&Ox3, amb ind in [facility]. Care ongoing.
[2016-11-14 12:34] VITALS: BP 161/82; PULSE 66; RESP 18; O2SAT 98
[2016-11-14] MEDS ORDERED: AMOX400S7 PO (13:27)
--- NOTE | 2016-11-14 13:35 | PCM.DISURG ---
Surgical Discharge Instruction Date of Service Nov 14, 2016 Dates of Hospitalization Date of Hospital Admission Nov 10, 2016 at 21:10 Providers Admitting Physician: Tanisha Martinez MD Primary Care Physician: Ephraim He MD Attending Physician: Tanisha Martinez MD Discharge Diagnosis Post Operative diagnosis Displaced Gastrostomy tube, Peritonitis s/p Laparoscopic Washout, Closure of gastrotomy with fresh iza gastrostomy Diet Discharge Diet: Other (Jevity 1.5 now at 40ml/hr - Advance to 95ml/hr over 12 hrs at night only. Goal for 24 hrs: Jevity 1.5 1150ml, Water flushes 720ml. If doing well ,can try bolus feeds in a couple of weeks) Dressing and Incisional Care Dressing Care: Other (Minimize G-tube manipulation) Hygiene: May shower Follow Up Plan Follow-up appointment: Weeks (2) Call your provider for: Fever, Chills, Shortness of breath, Increasing abdominal pain, Nausea, Vomiting, Wound redness, Increasing wound pain, Warmth to touch, Discharge @ incision, pus discharge Tanisha Martinez MD Nov 14, 2016 13:35
--- NOTE | 2016-11-14 14:00 | NUR ---
BM/Return from Oncology Pt returned from Oncology appt/clinic today. Pt reports BM today, brown, liquid stool. Care ongoing.
--- NOTE | 2016-11-14 14:28 | NUR ---
Social Work- Discharge Data: EMR reviewed. Pt is on day 4 of hospitalization. Discharge orders are active. Spoke with Best, [facility] liaison, regarding setting up and training pt on pump. [facility] RN will meet patient at home later this afternoon for training. Pt to d/c this afternoon at 3:30 to be able to meet RN at home. Pt, [facility], RN all updated and agreeable to plan. Pt's daughter Sherri at bedside, will be transport home. Pt has been ambulating in the unit. No additional d/c needs at this time. Assessment: Pt who will receive pump for tube feeds this evening Plan: Pt to discharge today at 3:30 to be able to meet [facility] RN for tube feed pump training. Pt, [facility], RN all updated and agreeable to plan. Pt's daughter Sherri at bedside, will be transport home. No additional d/c needs at this time. JOSIE Odom
--- NOTE | 2016-11-14 14:52 | NUR ---
Discharge Pt to discharge to home with his daughter; A&Ox3, able to CAMP, IV discontinued, no c/o pain. Pt encouraged to greens picker Rx for PO Amoxicillin that was E-scripted by Dr Martinez to [facility] and instructed that home health Rn to meet at his house this afternoon/evening in [place] to deliver and given instructions for use of feeding pump for G-tube feeds to be administered. Pt instructed he could shower but to keep area around tube clean and dry and to watch for s/s of infection where RAH drain was pulled today. Pt instructed to take PO Amoxicillin BID and PO liquid Tylenol for pain, follow up in [address] Martinez to which pt and daughter state understanding. All personal belongings with pt and daughter at time of discharge.
--- NOTE | 2016-11-15 07:44 | CCS CONS ---
[facility] [address] [address] MEDICAL ONCOLOGY NEW PATIENT REPORT PATIENT: NISA WINN : 1960 MR#: [id number] DATE: 11/10/2016 JOB ID: [id number] DATE: 11/14/2016 REFERRING PROVIDER: Tanisha Martinez MD, of General Surgery. 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 HISTORY OF PRESENT ILLNESS: The patient is a 56-year-old, unfortunate gentleman, with limited contact to medical care, who went to Urgent Care on September 11, 2016, for dysphagia for about two months that was quite severe and, even prior to that, he has had some issues with swallowing. He had lost a total of 40 pounds over this past few months. He was referred to Gastroenterology and saw Dr. Chintan Lino, who performed an EGD, but this showed a severe stricture at the distal esophagus at 35 cm from the incisors with friable tissue. They were not able to transverse through that stricture with even a pediatric scope. Biopsies were taken. Dr. Lino has then referred the patient to [facility] for possibility of need of stenting and further management. The biopsy had shown poorly differentiated adenocarcinoma that was CK 7 weakly positive, CK 20 negative, and it turned out to be positive 3+ for HER-2. He had a CAT scan of chest, abdomen, and pelvis with contrast performed on October 18, 2016, which showed numerous bilateral pulmonary nodules within 2-7 mm, suspicious for early metastases. In addition, circumferential wall thickening in the distal esophagus and proximal stomach, and numerous heterogeneously enhancing masses scattered throughout the liver consistent with liver metastases, the largest one in the posterior right lobe of the liver measuring 4.8 x 3.7 x 4.5 cm. There was also multiple enlarged gastrohepatic, periportal, periaortic and aortocaval lymph nodes consistent with gayla metastases, as well as bilateral inguinal lymph nodes. He was then seen by Dr. Abdirashid Hyatt, and was recommended to receive palliative radiation to the obstructing lesion first, as well as a feeding tube placement, and getting treatment closer to home. The patient was seen then by Dr. Alvarado here by Radiation Oncology on November 04, and referred to Dr. Martinez for a gastrostomy feeding tube placement. The patient would like to continue his therapy here as well, and has severe dysphagia and can only get liquids down. Dr. Martinez had contacted me to see this patient, and he had an appointment with me in the clinic today, but because of his readmission to the hospital, I am seeing him in the hospital today. He had a gastrostomy feeding tube placed laparoscopically on November 09, 2016, by Dr. Martinez, as well as the left subclavian portal catheter. He had come back to the ER the next day with severe abdominal pain, and CT scan of yesterday showed a misplaced G-tube with free air and fluid in the abdomen and pelvis. The patient was believed to have peritonitis and was taken back to the OR by Dr. Martinez on November 11, with laparotomy and abdominal washout, closure of the gastrostomy, with new gastrostomy tube placement. He has been managed with antibiotics with Zosyn and has not had any fevers over the past three days. He is planned to be discharged later. He was anticipated to start radiation therapy with a palliative intent and has actually received the 1st fraction today. Seeing the patient in bed. The patient is able to sit up. His daughter is present, is very interactive and asks good questions, does not appear to be critically ill. PAST MEDICAL HISTORY: The patient has not had much contact to primary care. 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 MEDICATIONS: He has been on Reglan. ALLERGIES: No known drug allergies. SOCIAL HISTORY: The patient lives in [facility], by himself. His daughter, who is at the bedside, will be living close by in the near future. He has a prior history of alcoholism, but has been sober. The daughter is moving back from [place] to support him. He has not been a smoker. REVIEW OF SYSTEMS: Symptoms of malnutrition, fatigue and weakness. Significant weight loss of 40 pounds, dysphagia for all solids and occasional vomiting. Slight abdominal pain. No bleeding. PHYSICAL EXAMINATION: On exam, he is a cachectic gentleman with a body mass index of 18.5. Weight 52 kg. Height 167 cm. BSA of 1.55. He has palpable adenopathy in the left supraclavicular area. No oral cavity lesion. Chronic left eye injury. Abdomen is soft. Extremities show no edema. Lungs clear to auscultation. LABORATORIES: Of November 12, show a white count of 7.6, hemoglobin 10.7, platelets 231. Chemistry shows normal electrolytes, creatinine 0.6. Normal liver enzymes except for a low albumin of 2.5. Cultures from peritoneal fluid have been negative. IMAGING: CT scan of chest, abdomen, and pelvis with contrast of October 18, 2016, reviewed above. Repeat CT scan with readmission of abdomen and pelvis of November 10 shows no significant change in the degree of liver metastases and showed changes related to the gastrostomy feeding tube misplacement that has been corrected. ASSESSMENT AND PLAN: A 56-year-old, unfortunate gentleman, with widely metastatic adenocarcinoma of the distal esophagus/gastroesophageal (GE) junction with high degree of dysphagia and related symptoms with 40-pound weight loss and failure to thrive for several months. His tumor has ended up being a poorly differentiated adenocarcinoma and it is HER-2 positive based on biopsy from the distal esophagus. His course has been somewhat rosy, and Dr. Lino from Gastroenterology had referred him directly to [facility] without the patient being seen here by Oncology, and [facility] has sent the patient back for treatment to be received closer to home, with initiation of palliative radiation, of which he has received the first dose here while he was in the hospital. He had a gastrostomy feeding tube placed last Monday by Dr. Martinez, as well as a portal catheter at the same time, and had, unfortunately, a leak around his gastrostomy feeding tube with some peritonitis and free air, and had a revision performed on November 11. His CT scan had shown evidence of metastases, particularly severely to the liver, as well as retroperitoneal lymph nodes and small subcentimeter multifocal lung metastases. Given the relative younger age of the patient, systemic chemotherapy is advised to prolong survival. I explained to him that his disease is not curable. The palliative radiation to the area of obstruction is certainly useful but is not going to impact overall control of his disease. Now that he has a gastrostomy feeding tube, his nutrition can be facilitated by a feeding tube, and therefore, the radiation is not urgently needed and he is not also bleeding. I discussed his situation also with Radiation Oncology, Dr. Mayberry, today. He has had only one fraction today at 250 cGy, and was planned to receive a total of 4000 cGy with a palliative intent over 16 fractions. Given his recent repeat surgery and the circumstances, I suggested to delay his further radiation therapy into at least next week, or maybe even later, so that we can combine it with concomitant chemotherapy to address the disease as a whole. Carboplatin and Taxol will be utilized for chemotherapy, and I explained to the patient that there are two separate protocols, the low-dose radiosensitizing dose versus the systemic dose. I would want for him to be exposed to the systemic dose early on to gain control over his liver metastases if he can tolerate it. This would be a carboplatin AUC of 5 on day one, and repeated every 21 days, along with Taxol at a compromised dose of 60 mg/m2 weekly. In addition, I learned after the fact that his tumor is HER-2 positive, and therefore, he would clearly benefit from addition of Herceptin. We are going to request authorization for that, and also a baseline echocardiogram to monitor ejection fraction. The Herceptin can begin early on and can be safely given concomitantly with radiation therapy. Dr. Mayberry will likely modify the degree of fractionation so that it is safer to be combined with chemotherapy. I will see him as an outpatient next week on November 22. TIME SPENT WITH PATIENT: Approximately 1 hour and 25 minutes were spent in counseling and coordination of care. CC: Abdirashid Hyatt DO, [facility]
--- NOTE | 2016-11-15 08:06 | PCM.DC.SUR ---
Discharge Summary Date of Service: Date of Hospital Admission: Nov 10, 2016 at 21:10 Date of Operation(s): 11/11/2016 Date of Discharge: 11/14/2016 Diagnosis at Time of Discharge Primary diagnoses: 1. 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 Displaced gastrostomy tube with peritonitis Other chronic conditions: 1. Left eye blindness 2. Marijuana smoker 3. History of alcohol and methamphetamine dependence Problems: Operation 1. Laparoscopy 2. abdominal washout 3. laparotomy 4. closure of gastrostomy with new Abhi gastrostomy tube placement. Brief History and Physical: The patient is a 56-year-old gentleman who presented with solid food dysphagia in September and Dr. Lino performed an EGD and diagnosed with a malignant esophageal structure that he was unable to traverse. Pathology results were consistent with poorly differentiated adenocarcinoma. He was seen by Dr. Alvarado for palliative radiation and lost about 40 pounds of weight during this time. Surgery was involved in his care due to malnutrition and for placement of gastrostomy tube. A laparoscopic gastrostomy tube was placed along a tunneled left subclavian central venous catheter the day prior to admission. He did well in the immediate postoperative period, but he started having abdominal pain after discharge home on the morning of readmission. He came back to the emergency department and evaluation in the emergency department included a CT scan, followed by contrast injection of the G-tube; both of them were concerning for extraluminal position of the G-tube. Consultants: Medical oncology Hospital Course: The patient was admitted and the following day underwent the above-mentioned operation without complication. The following morning G-tube was capped, and Fletcher catheter was removed. Clear liquids were initiated which were later advanced to a full liquid diet. On the patient's second postsurgical day trickle tube feeds were initiated. The patient was comfortable with liquid Tylenol through his postoperative course. Tube feed rate was advanced. The patient received radiation therapy prior to discharge from the hospital on his third postsurgical day. He will continue advancing tube feed rate after discharge. Pathology: None Disposition: The patient was discharged to home on his third postsurgical day with tube feedings infusing on a full liquid diet. At the time of discharge his wounds were intact and dry. Follow-up Plan: He will follow-up in the office with Dr. Martinez in 2 weeks. Acetaminophen (Acetaminophen Liquid) 650 Mg/20 Ml Liquid 650 MG PO Q6H PRN PRN For Pain Amoxicillin/Clav K 400-57 mg Susp (Amoxicillin/Clav K 400-57 mg Susp) 400 Mg/5 Ml Susp.recon 10 ML PO BID Lactose-Free Food (Ensure High Protein) 237 Ml Liquid 237 ML PO DAILY (Reported ) copies to: Yoshi Pierce MD; Ephraim He MD; Chintan Lino MD, Fred H PA-C Nov 15, 2016 08:06
== END 2016-11-14 14:52 | disposition home or self-care (01) | DRG 326 ==
LOC: SED 16:09 → OBSVTOIN 21:10 → OSC 21:10
PROVIDERS: ADMIT Student in an Organized Health Care Education/Training Program; ATTEND Student in an Organized Health Care Education/Training Program
PROC: 0DH63UZ Insertion of Feeding Device into Stomach, Percutaneous Approach (ICD-10-PCS; 2016-11-10)
PROC: 0DP60UZ Removal of Feeding Device from Stomach, Open Approach (ICD-10-PCS; principal; 2016-11-10 21:15)
DX: K94.23 Gastrostomy malfunction (principal); K65.9 Peritonitis, unspecified; E43 Unspecified severe protein-calorie malnutrition; C15.5 Malignant neoplasm of lower third of esophagus